=== PATIENT | male | born 1960 | race Caucasian/White ===

== ENCOUNTER 2019-06-19 11:01 | Emergency (ER) | payer OTHER, SELFPAY ==
[2019-06-19 11:12] VITALS: BP 151/113; PULSE 78; RESP 18; TEMP 36.7; O2SAT 97
--- NOTE | 2019-06-19 11:18 | ED.DIZZY ---
HPI - Dizziness General Chief Complaint: Dizziness Stated Complaint: clogged ears verdigo? Time Seen by Provider: 06/19/19 11:18 Source: patient Mode of arrival: Wheelchair Limitations: no limitations History of Present Illness HPI Narrative: The patient has a history of recurrent right ear pressure. He has had pressure in the right ear several days this time. He has had no drainage from the ears. He has taken Sudafed. He has no sinus pressure. He does not smoke. He thinks he does have a degree of allergies. He has a prior history of similar events. He does not have tinnitus. 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 With the current symptoms he has no chest pain, or palpitations. He has no confusion, dysarthria, focal weakness or numbness. He is prediabetic. He has no recent illness. Related Data Home Medications Medication Instructions Recorded Confirmed aspirin 81 mg tablet,delayed 81 mg PO DAILY 12/09/18 06/19/19 release fexofenadine 60 mg tablet 60 mg PO DAILY tab 12/09/18 06/19/19 metformin 500 mg tablet 500 mg PO BID 12/09/18 06/19/19 metoprolol tartrate 50 mg tablet 50 mg PO BID 12/09/18 06/19/19 pantoprazole 20 mg tablet,delayed 20 mg PO DAILY 12/09/18 06/19/19 release Respironics Remstar CPAP #1 ea 06/19/19 06/19/19 simvastatin 20 mg PO QPM 06/19/19 06/19/19 triamterene 37.5 1 tab PO DAILY tab 06/19/19 06/19/19 mg-hydrochlorothiazide 25 mg tablet Previous Rx's Medication Instructions Recorded meclizine 25 mg PO TID-QID PRN #30 tab 06/19/19 Allergies Allergy/AdvReac Type Severity Reaction Status Date / Time No Known Allergies Allergy Unknown Verified 06/19/19 13:03 Review of Systems Review of Systems ROS Unobtainable: All systems reviewed & are unremarkable except as noted in HPI and below Constitutional Constitutional: Denies chills, Denies fatigue, Denies fever(s), Denies lethargy and Denies weakness Eyes Eyes: Denies change in vision, Denies eye discharge and Denies loss of vision ENT Ears, Nose, Mouth, and Throat: Denies change in voice and Denies neck pain Cardiovascular Cardiovascular: Denies chest pain, Denies irregular heart rhythm, Denies lightheadedness, Denies palpitations, Denies dyspnea and Denies orthopnea Respiratory Respiratory: Denies cough and Denies dyspnea Gastrointestinal Gastrointestinal: Denies abdominal pain, Denies change in bowel habits, Denies nausea and Denies vomiting Musculoskeletal Musculoskeletal: Denies abnormal gait, Denies back pain and Denies neck pain Integumentary/Breasts Skin/Breast: Denies erythema, Denies rash and Denies wounds Neurologic Neurologic: Denies abnormal gait, Denies confusion, Denies loss of vision and Denies weakness Psychiatric Psychiatric: Denies anxiety, Denies confusion and Denies depression Endocrine Endocrine: Denies fatigue and Denies palpitations Patient History Medical History Chronic seasonal allergic rhinitis (Chronic) Hyperlipidemia (Chronic) Hypertension (Chronic) Obesity (BMI 30-39.9) (Chronic) Obstructive sleep apnea of adult (Chronic) Social History marital status: details: cassie Sanchez, lives in [place] household members: spouse lives independently: Yes caregiver/support person: No housing: house pets and animals: Yes (2 dogs) occupational status: other (retired) Smoking Status: Never smoker alcohol intake frequency: 0-2 drinks per day Substance Use Type: does not use Exam Initial Vital Signs Initial Vital Signs: Vital Signs Temperature 98.1 F 06/19/19 11:12 Pulse Rate 78 06/19/19 11:12 Respiratory Rate 18 06/19/19 11:12 Blood Pressure 151/113 H 06/19/19 11:12 Pulse Oximetry 97 06/19/19 11:12 Const General: cooperative and well developed Nutritional Appearance: well nourished Orientation: alert, awake, oriented x3 and not confused [facility] Head: normocephalic and atraumatic Ears: external ears normal, TM normal on the left and TM abnormal (The right TM is retracted, but clear.) Nose: external nose normal and No nasal discharge Face and sinus: sinuses nontender, face symmetric and No dry mucous membranes Mouth: oral mucosae normal and moist mucous membranes Throat: tonsils normal and uvula midline Eyes General: appearance normal, both eyes and all related structures Eyelids: eyelids normal Conjunctivae: conjunctivae normal Sclera: sclerae normal Pupils: PERRL EOM: EOM intact bilaterally Neck Neck: No lymphadenopathy and No JVD Chest Chest: normal inspection of the chest Resp Effort & Inspection: normal respiratory effort, able to speak in complete sentences, no respiratory distress and no use of accessory muscles Auscultation: clear to auscultation bilaterally, no rales, no rhonchi and no wheezes Cardio Rate: regular rate Rhythm: regular rhythm Heart Sounds: no click, no gallops, no murmurs and no rubs Pulses: normal peripheral pulses GI Palpation: soft Percussion: normal to percussion Back/Spine/Pelvis Back: No back tenderness Skin General: no rashes or lesions noted Neuro General: alert, oriented x3 and no focal motor deficits Speech: speech normal Extrem General: full ROM, no pedal edema and no calf tenderness Course Course Course Narrative: The patient's symptoms have resolved with the use of meclizine 50 mg p.o.. He is feeling better and will be discharged on meclizine. Orders Ordered: ED Orders 06/19/19 11:14 EKG-12 Lead Stat 06/19/19 11:20 Complete Blood Count AUTO DIFF Stat Comprehensive Metabolic Panel Stat PT [Prothrombin Time INR] Stat Partial Thromboplastin Time Stat Troponin & CK Cardiac Panel Stat Discontinued Medications Sodium Chloride (Normal Saline 0.9%) 1,000 mls @ 150 mls/hr IV CONT AMANDO Last Infusion: 06/19/19 12:55 Dose: 0 mls/hr Documented by: Admin: 06/19/19 11:38 Dose: 150 mls/hr Documented by: CHASE Meclizine HCl (Antivert) 50 mg PO NOW ONE Stop: 06/19/19 11:25 Last Admin: 06/19/19 11:37 Dose: 50 mg Documented by: CHASE Ondansetron HCl (Zofran) 4 mg IV NOW ONE Stop: 06/19/19 11:17 Last Admin: 06/19/19 11:36 Dose: 4 mg Documented by: CHASE Vital Signs Vital signs: Vital Signs - 8 hr 06/19/19 11:12 06/19/19 11:32 06/19/19 12:00 Temperature 98.1 F Pulse Rate 78 65 73 Respiratory Rate 18 19 18 Blood Pressure 151/113 H Blood Pressure [Right Arm] 146/97 H 132/91 H Pulse Oximetry 97 93 98 06/19/19 12:59 Temperature Pulse Rate 70 Respiratory Rate 14 Blood Pressure Blood Pressure [Right Arm] 145/90 H Pulse Oximetry 98 MDM - Dizziness Lab Data Result diagrams: 06/19/19 11:20 06/19/19 11:20 Labs: Lab Results 06/19/19 06/19/19 06/19/19 Range/Units 11:20 11:20 11:20 WBC 10.6 (4.5-11.0) X10^3/uL RBC 5.26 (4.5-5.9) X10^6/uL Hgb 15.8 (13.5-17.5) g/dL Hct 44.3 (41-53) % MCV 84.3 (80-100) fL MCH 30.0 (26-34) PG MCHC 35.6 (30-36) % RDW 14.7 (11.6-14.8) % Plt Count 250 (150-400) X10^3/uL Neut % (Auto) 51.2 (50-75) % Lymph % (Auto) 36.9 (25-40) % [place] % (Auto) 8.6 (3-14) % Eos % (Auto) 3.1 (2-4) % Baso % (Auto) 0.2 (0-2) % Neut # (Auto) 5400 (8822-9583) /uL Lymph # (Auto) 3900 (6291-4052) /uL [place] # (Auto) 900 (0-900) /uL Eos # (Auto) 300 (0-450) /uL Baso # (Auto) 0 (0-100) /uL PT 11.1 (10.1-12.7) SECONDS INR 1.0 (0.9-1.3) APTT 29 (26.4-36.2) SECONDS Sodium 136 L (137-145) mmol/L Potassium 3.9 (3.4-5.1) mmol/L Chloride 99 (98-107) mmol/L Carbon Dioxide 25 (22-32) mmol/L BUN 18 (9-20) mg/dL Creatinine 0.80 (0.66-1.25) mg/dL Estimated GFR > 60.0 (>60) mL/min BUN/Creatinine Ratio 22.5 H (6-22) Glucose 178 H (80-110) mg/dL Calcium 9.6 (8.4-10.2) mg/dL Total Bilirubin 0.7 (0.2-1.3) mg/dL AST 79 H (17-59) IU/L ALT 108 H (21-72) IU/L Alkaline Phosphatase 57 (38-126) U/L Total Creatine Kinase (55-170) U/L CK-MB (CK-2) CK-MB (CK-2) Rel Index Troponin I (0.01-0.034) ng/mL Total Protein 8.4 H (6.3-8.2) g/dL Albumin 4.9 (3.5-5.0) g/dL Globulin 3.5 (1.7-4.1) g/dL Albumin/Globulin Ratio 1.4 (1.0-2.8) 06/19/19 Range/Units 11:20 WBC (4.5-11.0) X10^3/uL RBC (4.5-5.9) X10^6/uL Hgb (13.5-17.5) g/dL Hct (41-53) % MCV (80-100) fL MCH (26-34) PG MCHC (30-36) % RDW (11.6-14.8) % Plt Count (150-400) X10^3/uL Neut % (Auto) (50-75) % Lymph % (Auto) (25-40) % [place] % (Auto) (3-14) % Eos % (Auto) (2-4) % Baso % (Auto) (0-2) % Neut # (Auto) (5866-4823) /uL Lymph # (Auto) (9829-8917) /uL [place] # (Auto) (0-900) /uL Eos # (Auto) (0-450) /uL Baso # (Auto) (0-100) /uL PT (10.1-12.7) SECONDS INR (0.9-1.3) APTT (26.4-36.2) SECONDS Sodium (137-145) mmol/L Potassium (3.4-5.1) mmol/L Chloride (98-107) mmol/L Carbon Dioxide (22-32) mmol/L BUN (9-20) mg/dL Creatinine (0.66-1.25) mg/dL Estimated GFR (>60) mL/min BUN/Creatinine Ratio (6-22) Glucose (80-110) mg/dL Calcium (8.4-10.2) mg/dL Total Bilirubin (0.2-1.3) mg/dL AST (17-59) IU/L ALT (21-72) IU/L Alkaline Phosphatase (38-126) U/L Total Creatine Kinase 80 (55-170) U/L CK-MB (CK-2) TNP CK-MB (CK-2) Rel Index TNP Troponin I < 0.012 (0.01-0.034) ng/mL Total Protein (6.3-8.2) g/dL Albumin (3.5-5.0) g/dL Globulin (1.7-4.1) g/dL Albumin/Globulin Ratio (1.0-2.8) Urine Dip Bedside Urine Glucose Negative Bedside Urine Bilirubin - Negative Bedside Urine Ketone - Negative Urine Specific [place] 1.020 Bedside Urine Occult Blood - Negative Bedside Urine pH 6.0 Bedside Urine Protein +/- 15 Bedside Urine Urobilinogen - Negative Bedside Urine Nitrite - Negative Bedside Urine Leukocytes - Negative Esterase ECG Data Attestation: I personally reviewed and interpreted this ECG as follows: (Normal sinus rhythm rate 72 beats per minute. First degree AV block. Possible left ventricular conduction delay. No ectopy. No acute ST T wave changes.) Discharge Plan Departure Patient Disposition: Home Clinical Impression: Acute labyrinthitis Qualifiers: Laterality: right Qualified Code(s): H83.01 - Labyrinthitis, right ear Discharge Date/Time: 06/19/19 13:03 Instructions: DI for Labyrinthitis Activity Restrictions/Additional Instructions: Continue taking Sudafed every 6 hours until the right ear pressure resolves. You should take warm steamy showers 1-2 times daily, this may help. Meclizine 1 tablet every 6 hours as needed for dizziness. Follow-up with her doctor in about 1 week for recheck. Return the ER if obviously worse. Prescriptions: New meclizine 25 mg tablet 25 mg PO TID-QID PRN (Reason: dizziness) Qty: 30 RF: 0 No Action simvastatin 20 mg tablet 20 mg PO QPM RF: 0 metformin 500 mg tablet 500 mg PO BID RF: 0 fexofenadine [Elana Allergy] 60 mg tablet 60 mg PO DAILY RF: 0 aspirin [Adult Low Dose Aspirin] 81 mg tablet,delayed release (DR/EC) 81 mg PO DAILY RF: 0 pantoprazole [Protonix] 20 mg tablet,delayed release (DR/EC) 20 mg PO DAILY RF: 0 metoprolol tartrate 50 mg tablet 50 mg PO BID RF: 0 triamterene-hydrochlorothiazid 37.5-25 mg tablet 1 tab PO DAILY RF: 0 (DME) Respironics Remstar CPAP Qty: 1 RF: 0
[2019-06-19 11:32] VITALS: BP 146/97; PULSE 65; RESP 19; O2SAT 93
[2019-06-19 11:32] LABS: Add Manual Diff / Slide Review NO; Basophils Absolute Auto 0 /uL (0-100); Basophils Percent Auto 0.2 % (0-2); Eosinophils Absolute Auto 300 /uL (0-450); Eosinophils Percent Auto 3.1 % (2-4); Hematocrit 44.3 % (41-53); Hemoglobin 15.8 g/dL (13.5-17.5); Lymphocytes Absolute Auto 3900 /uL (1100-4500); Lymphocytes Percent Auto 36.9 % (25-40); Mean Corpuscular HGB Conc 35.6 % (30-36); Mean Corpuscular Volume 84.3 fL (80-100); Monocytes Absolute Auto 900 /uL (0-900); Monocytes Percent Auto 8.6 % (3-14); Neutrophils Absolute Auto 5400 /uL (1500-7000); Neutrophils Percent Auto 51.2 % (50-75); Platelet Count 250 X10^3/uL (150-400); Red Blood Cell Count 5.26 X10^6/uL (4.5-5.9); Red Cell Distribution Width 14.7 % (11.6-14.8); White Blood Cell Count 10.6 X10^3/uL (4.5-11.0)
[2019-06-19] MEDS: ONDANSETRON 4 MG/2 ML INJ IV (11:36)
[2019-06-19] MEDS: MECLIZINE HCL 12.5 MG TABLET 50 MG PO (11:37)
[2019-06-19] MEDS: SODIUM CHLORIDE 0.9% 1,000 ML 150 ML IV (11:38)
[2019-06-19 11:41] LABS: Prothrombin Time 11.1 SECONDS (10.1-12.7)
[2019-06-19 11:43] LABS: PTT Partial Thromboplastin Tim 29 SECONDS (26.4-36.2)
[2019-06-19 11:46] LABS: Alanine Aminotransferase 108 IU/L (21-72); Albumin 4.9 g/dL (3.5-5.0); Albumin Globulin Ratio 1.4 (1.0-2.8); Alkaline Phosphatase 57 U/L (38-126); Aspartate Aminotransferase 79 IU/L (17-59); BUN Creatinine Ratio 22.5 (6-22); Bilirubin Total 0.7 mg/dL (0.2-1.3); Blood Urea Nitrogen 18 mg/dL (9-20); Calcium 9.6 mg/dL (8.4-10.2); Carbon Dioxide 25 mmol/L (22-32); Chloride 99 mmol/L (98-107); Creatine Kinase 80 U/L (55-170); Estimated Glomerular Filt Rate > 60.0 mL/min (>60); Globulin 3.5 g/dL (1.7-4.1); Glucose 178 mg/dL (80-110); HEMOLYSIS 15 (0-50); Potassium 3.9 mmol/L (3.4-5.1); Sodium 136 mmol/L (137-145); Total Protein 8.4 g/dL (6.3-8.2)
[2019-06-19 11:57] LABS: Troponin I < 0.012 ng/mL (0.01-0.034)
[2019-06-19 12:00] VITALS: BP 132/91; PULSE 73; RESP 18; O2SAT 98
[2019-06-19 12:59] VITALS: BP 145/90; PULSE 70; RESP 14; O2SAT 98
== END 2019-06-19 13:03 | disposition home or self-care (01) ==
PROVIDERS: Emergency Provider Emergency Medicine
DX: H83.01 Labyrinthitis, right ear (principal); R07.9 Chest pain, unspecified
CPT/HCPCS: 36415; 80053; 81003; 82550; 84484; 85025; 85610; 85730; 93005; 96361; 96374; 99283; 99284; J2405

== ENCOUNTER → 2019-07-31 18:54 | Outpatient (CLI) | payer OTHER, SELFPAY ==
--- NOTE | 2019-07-31 | DI.MRI.S_ITS ---
PROCEDURE: MR HEAD/BRAIN WO CON INDICATIONS: unspecified sensorineural hearing loss TECHNIQUE: Non-contrast axial T1 spin echo, axial T2 fast spin echo, sagittal and axial FLAIR, coronal T2 fast spin echo, axial gradient echo, axial diffusion and ADC through the brain. COMPARISON: None. FINDINGS: Image quality: Excellent. CSF spaces: Ventricles appear symmetric in size and shape. Basal cisterns are patent. No extra-axial fluid collections. Brain: No intracranial bleeds or mass effects. There is mild cerebral volume loss for age. There are minimal periventricular and deep white matter chronic small vessel ischemic changes. Brainstem appears normal. Diffusion-weighted images show no acute ischemic insults. No chronic ischemic insults. Normal intravascular flow voids are present. Skull and face: Calvarial bone marrow is normal in signal. Orbits are normal. Sinuses: Sinuses and mastoids are clear. IMPRESSION: 1. No acute intracranial disease process. 2. No abnormal intracranial mass or mass effect. There is clinical concern for vestibular schwannoma as underlying cause of patient's sensorineural hearing loss, then dedicated MRI internal auditory canals with and without contrast should be considered for further evaluation. 3. Mild, diffuse cerebral volume loss. 4. Minimal periventricular and subcortical white matter chronic microvascular ischemic change. Dictated by: Maria T Bourne MD, PhD on 08/01/2019 at 8:01 Approved by: Maria T Bourne MD, PhD on 08/01/2019 at 8:07
== END ==
PROVIDERS: Visit Provider Otolaryngology Facial Plastic Surgery
DX: H90.5 Unspecified sensorineural hearing loss (principal)
CPT/HCPCS: 70551

== ENCOUNTER 2020-01-25 19:34 | Observation (INO) | payer OTHER, SELFPAY ==
[2020-01-25] VITALS (10 sets, daily range): BP systolic 134–184; BP diastolic 76–93; PULSE 80–91; RESP 16–29; TEMP 35.7; O2SAT 88–97; BMI 35.2
--- NOTE | 2020-01-25 19:48 | DI.RAD.S_ITS ---
PROCEDURE: XR CHEST 1V INDICATIONS: SOB, diaphoresis, dizzy, N/V TECHNIQUE: One view of the chest was acquired. COMPARISON: None. FINDINGS: Surgical changes and devices: None. Lungs and pleura: Lungs are clear. No pleural effusions or pneumothorax. Mediastinum: Mediastinal contours appear normal. Heart size is normal. Bones and chest wall: No suspicious bony lesions. Overlying soft tissues appear unremarkable. IMPRESSION: No acute cardiopulmonary abnormality. Dictated by: Gualberto Barr M.D. on 01/25/2020 at 21:15 Approved by: Gualberto Barr M.D. on 01/25/2020 at 21:15
[2020-01-25] MEDS: SODIUM CHLORIDE 0.9% 1,000 ML 150 ML IV (19:58)
[2020-01-25] MEDS: ONDANSETRON 4 MG/2 ML INJ IV (20:00)
[2020-01-25] MEDS: ASPIRIN 81 MG CHEW TAB 324 MG PO (20:00)
[2020-01-25 20:02] LABS: Add Manual Diff / Slide Review NO; Basophils Absolute Auto 100 /uL (0-100); Basophils Percent Auto 1.1 % (0-2); Eosinophils Absolute Auto 400 /uL (0-450); Eosinophils Percent Auto 2.9 % (2-4); Hematocrit 45.5 % (41-53); Hemoglobin 15.9 g/dL (13.5-17.5); Lymphocytes Absolute Auto 5600 /uL (1100-4500); Lymphocytes Percent Auto 42.2 % (25-40); Mean Corpuscular HGB Conc 34.9 % (30-36); Mean Corpuscular Hemoglobin 29.2 PG (26-34); Mean Corpuscular Volume 83.6 fL (80-100); Monocytes Absolute Auto 1100 /uL (0-900); Neutrophils Absolute Auto 6100 /uL (1500-7000); Neutrophils Percent Auto 45.8 % (50-75); Platelet Count 246 X10^3/uL (150-400); Red Blood Cell Count 5.44 X10^6/uL (4.5-5.9); Red Cell Distribution Width 14.6 % (11.6-14.8); White Blood Cell Count 13.2 X10^3/uL (4.5-11.0)
[2020-01-25 20:09] LABS: Prothrombin Time 11.4 SECONDS (10.1-12.7)
[2020-01-25 20:12] LABS: PTT Partial Thromboplastin Tim 27 SECONDS (26.4-36.2)
[2020-01-25 20:13] LABS: D Dimer < 200 ng/mL (<230)
[2020-01-25 20:14] LABS: Alanine Aminotransferase 82 IU/L (<50); Albumin 4.8 g/dL (3.5-5.0); Albumin Globulin Ratio 1.3 (1.0-2.8); Alkaline Phosphatase 60 U/L (38-126); Aspartate Aminotransferase 65 IU/L (17-59); BUN Creatinine Ratio 17.2 (6-22); Bilirubin Total 0.6 mg/dL (0.2-1.3); Blood Urea Nitrogen 16 mg/dL (9-20); Calcium 9.6 mg/dL (8.4-10.2); Carbon Dioxide 25 mmol/L (22-32); Chloride 101 mmol/L (98-107); Creatine Kinase 84 U/L (55-170); Estimated Glomerular Filt Rate > 60.0 mL/min (>60); Globulin 3.6 g/dL (1.7-4.1); Glucose 151 mg/dL (80-110); HEMOLYSIS 16 (0-50); Lipase 140 U/L (23-300); Potassium 3.1 mmol/L (3.4-5.1); Sodium 139 mmol/L (137-145); Total Protein 8.4 g/dL (6.3-8.2)
--- NOTE | 2020-01-25 20:22 | DI.CT.S_ITS ---
PROCEDURE: CT HEAD/BRAIN WO CON INDICATIONS: dizziness, vomiting TECHNIQUE: Noncontrast 4.5 mm thick angled axial sections acquired from the foramen magnum to the vertex, with coronal and sagittal reformats. For radiation dose reduction, the following was used: automated exposure control, adjustment of mA and/or kV according to patient size. COMPARISON: [facility], , MR HEAD/BRAIN WO CON, 07/31/2019, 19:18. FINDINGS: Image quality: Excellent. CSF spaces: Basal cisterns are patent. No extra-axial fluid collections. Ventricles are normal in size and shape. Brain: No midline shift. No intracranial masses or hemorrhage. Gupta-white matter interface is normal. Skull and face: Calvarium and visualized facial bones are intact, without suspicious lesions. Sinuses: Visualized sinuses and mastoids are clear. IMPRESSION: No acute intracranial abnormality demonstrated. Dictated by: Gualberto Barr M.D. on 01/25/2020 at 20:53 Approved by: Gualberto Barr M.D. on 01/25/2020 at 20:55
[2020-01-25 20:26] LABS: NT-proBNP (BNP-Adult 18+) 21 pg/mL (<125); Troponin I < 0.012 ng/mL (0.01-0.034)
--- NOTE | 2020-01-25 20:35 | PC.NURSE ---
patient O2 dipping down to 88% on RA. patient placed on 2L oxygen via nasal canula. patient has a history of sleep apnea. provider notified and aware.
[2020-01-25 20:42] LABS: Procalcitonin 0.07 ng/mL (<0.5)
--- NOTE | 2020-01-25 21:09 | ED_ITS ---
HPI - Dizziness General Chief Complaint: Dizziness Stated Complaint: nausea/vomiting, dizziness, sweating Time Seen by Provider: 01/25/20 19:35 Source: patient Mode of arrival: Family Vehicle Limitations: no limitations History of Present Illness HPI Narrative: 60-year-old male former smoker with history of hypertension, hyperlipidemia and obesity presents with a chief complaint of sudden onset dizziness, lightheadedness, diaphoresis, shortness of breath along with nausea and vomiting a few hours prior to arrival. He denies any chest pain or pressure. He denies any provocation or palliation of symptoms. He denies any recent head injury or headache. He does state that he had an episode years ago of vertigo that felt like this but states today the dizziness he has is not worsened by turning his head MD complaint: dizziness and lightheadedness Onset (ago): hour(s) Timing: gradual onset Description: lightheadedness History of similar episodes: Yes History of trauma: No Severity: moderate Relieving factors: nothing Exacerbating factors: nothing Associated symptoms: diaphoresis, shortness of breath, nausea and vomiting Related Data Home Medications Medication Instructions Recorded Confirmed metformin 500 mg tablet 500 mg PO BID 12/09/18 01/25/20 metoprolol tartrate 50 mg tablet 50 mg PO BID 12/09/18 01/25/20 pantoprazole 20 mg tablet,delayed 20 mg PO DAILY 12/09/18 01/25/20 release Respironics Remstar CPAP #1 ea 06/19/19 06/19/19 simvastatin 20 mg PO QPM 06/19/19 01/25/20 triamterene 37.5 1 tab PO DAILY tab 06/19/19 01/25/20 mg-hydrochlorothiazide 25 mg tablet Allergies Allergy/AdvReac Type Severity Reaction Status Date / Time No Known Allergies Allergy Unknown Verified 06/19/19 13:03 Review of Systems Constitutional Constitutional: Denies chills, Denies fatigue, Denies fever(s), Denies frequent falls, Denies lethargy and Denies weakness Eyes Eyes: Denies change in vision, Denies eye discharge, Denies irritation and Denies loss of vision ENT Ears, Nose, Mouth, and Throat: Denies change in voice, Denies dizziness, Denies neck pain, Denies sore throat and Denies throat swelling Cardiovascular Cardiovascular: Denies chest pain, Denies irregular heart rhythm, Reports lightheadedness, Denies palpitations, Denies dyspnea, Denies dyspnea on exertion and Denies orthopnea Comments: Diaphoresis Respiratory Respiratory: Denies cough, Denies dyspnea, Denies dyspnea on exertion and Denies wheezing Gastrointestinal Gastrointestinal: Denies abdominal pain, Denies change in bowel habits, Denies diarrhea, Reports nausea and Reports vomiting Musculoskeletal Musculoskeletal: Denies neck pain and Denies numbness Integumentary/Breasts Skin/Breast: Denies pruritus, Denies erythema, Denies rash and Denies wounds Neurologic Neurologic: Denies behavioral changes, Denies confusion, Denies dizziness, Denies frequent falls, Denies loss of vision, Denies numbness and Denies weakness Psychiatric Psychiatric: Denies anxiety, Denies behavioral changes, Denies confusion, Denies depression, Denies homicidal ideation and Denies suicidal ideation Endocrine Endocrine: Denies fatigue, Denies flushing and Denies palpitations Hematologic/Lymphatic Hematologic/Lymphatic: Denies easy bruising Allergic/Immunologic Allergic/Immunologic: Denies urticaria, Denies throat swelling and Denies wheezing Patient History Medical History (Updated 01/26/20 @ 04:19 by Paras Garcia DO) Chronic seasonal allergic rhinitis (Chronic) Clicking tinnitus of right ear (Acute) Hyperlipidemia (Chronic) Hypertension (Chronic) Liver abscess (Acute) Obesity (BMI 30-39.9) (Chronic) Obstructive sleep apnea of adult (Chronic) Type 2 diabetes mellitus (Acute) Vertigo (Acute) Surgical History (Updated 01/26/20 @ 01:39 by DERECK Angel) History of cholecystectomy (Acute) History of surgery on arm (Acute) Family History (Updated 01/26/20 @ 01:40 by DERECK Angel) Father Medical history unknown Mother Hypertension Cardiac disease Smoker Social History marital status: details: cassie Sanchez, lives in [place] household members: spouse lives independently: Yes caregiver/support person: No housing: house pets and animals: Yes (2 dogs) occupational status: other (retired) Smoking Status: Former smoker Smoking Status: Former smoker alcohol intake frequency: 0-2 drinks per day Substance Use Type: does not use Exam Narrative Exam Narrative: GENERAL: [60] year old patient appears stated age. Well- nourished, well-developed patient, in moderate distress. Significantly diaphoretic HEAD: Atraumatic. Normocephalic. EYES: Pupils equal round and reactive. Extraocular motions intact. No scleral icterus. No injection or drainage. No nystagmus noted. No provocation of dizziness with change of head position ENT: Nose without bleeding, purulent drainage. Throat without erythema, tonsilla r hypertrophy or exudate. Airway patent. NECK: Trachea midline. Non tender CARDIOVASCULAR: Regular rate and rhythm without murmurs, gallops, or rubs. RESPIRATORY: Clear to auscultation. Breath sounds equal bilaterally. No wheezes, rales, or rhonchi. GASTROINTESTINAL: Abdomen soft, non-tender, nondistended. EXTREMITIES: No edema or joint tenderness. BACK: Nontender without deformity or crepitance. No flank tenderness. NEURO: AOx3. SKIN: No rash or erythema of visible areas Initial Vital Signs Initial Vital Signs: Vital Signs Temperature 96.3 F L 01/25/20 19:40 Pulse Rate 89 01/25/20 19:40 Respiratory Rate 18 01/25/20 19:40 Blood Pressure 184/93 H 01/25/20 19:40 Pulse Oximetry 96 01/25/20 19:40 Course Orders Ordered: ED Orders 01/25/20 19:48 XR chest 1V Stat EKG-12 Lead Stat 01/25/20 19:53 Complete Blood Count AUTO DIFF Stat Comprehensive Metabolic Panel Stat D Dimer Stat Lipase Stat NT-proBNP (BNP-Adult 18+) Stat Partial Thromboplastin Time Stat Procalcitonin Stat Prothrombin Time INR Stat Troponin & CK Cardiac Panel Stat 01/25/20 20:22 CT head/brain wo con Stat 01/25/20 22:12 Troponin I Stat Acetaminophen (Tylenol) 650 mg PO Q6HR PRN PRN Reason: Fever/Mild Pain (1-3) Al Hydrox/Mg Hydrox/Simethicone (Maalox Plus) 30 ml PO Q6HR PRN PRN Reason: Dyspepsia Bisacodyl (Dulcolax) 10 mg [place] DAILY PRN PRN Reason: Constipation Calcium Carbonate (Tums) 1,000 mg PO Q4HR PRN PRN Reason: Dyspepsia Dextrose (D50w) 25 gm IV PRN PRN; Protocol PRN Reason: Hypoglycemia Enoxaparin Sodium (Lovenox) 40 mg SUBCUT DAILY AMANDO Potassium Chloride 60 meq/ (Sodium Chloride) 530 mls @ 88.333 mls/hr IV NOW ONE Stop: 01/26/20 06:38 Last Admin: 01/26/20 01:06 Dose: 88.333 mls/hr Documented by: MICHAEL Cosigned by: KEVIN Insulin Aspart (Novolog Flexpen) 0 unit SUBCUT ACHS AMANDO; Protocol Meclizine HCl (Antivert) 25 mg PO Q6HR PRN PRN Reason: Vertigo Metoprolol Tartrate (Lopressor) 50 mg PO BID [facility] Naloxone HCl (Narcan) 0.2 mg IV Q2MIN PRN PRN Reason: Opiate Reversal Ondansetron HCl (Zofran) 4 mg IV Q6HR PRN PRN Reason: Nausea And Vomiting Pantoprazole Sodium (Protonix) 20 mg PO 0600 [facility] Psyllium Hydrophilic Mucilloid (Metamucil Fiber Packet) 1 packet PO DAILY [facility] Sennosides (Senna) 17.2 mg PO BEDTIME PRN PRN Reason: Constipation Simvastatin (Zocor) 20 mg PO QPM [facility] Triamterene/HCTZ (Maxide 37.5/25) 1 tab PO DAILY [facility] Discontinued Medications Aspirin (Aspirin Chew) 324 mg PO NOW ONE Stop: 01/25/20 19:49 Last Admin: 01/25/20 20:00 Dose: 324 mg Documented by: MARY Sodium Chloride (Normal Saline 0.9%) 1,000 mls @ 150 mls/hr IV CONT AMANDO Last Infusion: 01/26/20 00:39 Dose: 150 mls/hr Documented by: Infusion: 01/26/20 00:11 Dose: 0 mls/hr Documented by: Infusion: 01/26/20 00:07 Dose: 150 mls/hr Documented by: Infusion: 01/25/20 21:02 Dose: 150 mls/hr Documented by: Infusion: 01/25/20 20:31 Dose: 0 mls/hr Documented by: Admin: 01/25/20 19:58 Dose: 150 mls/hr Documented by: MARY Sodium Chloride (Normal Saline 0.9%) 1,000 mls @ 75 mls/hr IV CONT AMANDO Last Infusion: 01/26/20 02:53 Dose: 75 mls/hr Documented by: Admin: 01/26/20 00:51 Dose: 75 mls/hr Documented by: MICHAEL Ondansetron HCl (Zofran) 4 mg IV NOW ONE Stop: 01/25/20 19:49 Last Admin: 01/25/20 20:00 Dose: 4 mg Documented by: MARY Consultations Consultation #1: discussed with cardio at [facility]. No need to transfer, needs admission and rule out Consultation #2: hospitalist happy to accept Vital Signs Vital signs: Vital Signs - 8 hr 01/25/20 20:29 01/25/20 20:37 01/25/20 20:59 Pulse Rate 86 Respiratory Rate 17 Blood Pressure [Left Arm] 146/85 H Pulse Oximetry 88 L 96 95 01/25/20 21:30 01/25/20 22:00 01/25/20 22:30 Pulse Rate 87 90 89 Respiratory Rate 23 29 H 22 Blood Pressure [Left Arm] 134/76 141/87 H 141/85 H Pulse Oximetry 95 97 96 01/25/20 23:00 Pulse Rate 91 H Respiratory Rate 20 Blood Pressure [Left Arm] 150/84 H Pulse Oximetry 96 MDM - Dizziness Lab Data Result diagrams: 01/25/20 19:53 01/25/20 19:53 Labs: Lab Results 01/25/20 01/25/20 01/25/20 Range/Units 19:53 19:53 19:53 WBC 13.2 H (4.5-11.0) X10^3/uL RBC 5.44 (4.5-5.9) X10^6/uL Hgb 15.9 (13.5-17.5) g/dL Hct 45.5 (41-53) % MCV 83.6 (80-100) fL MCH 29.2 (26-34) PG MCHC 34.9 (30-36) % RDW 14.6 (11.6-14.8) % Plt Count 246 (150-400) X10^3/uL Neut % (Auto) 45.8 L (50-75) % Lymph % (Auto) 42.2 H (25-40) % [place] % (Auto) 8.0 (3-14) % Eos % (Auto) 2.9 (2-4) % Baso % (Auto) 1.1 (0-2) % Neut # (Auto) 6100 (9565-6785) /uL Lymph # (Auto) 5600 H (4133-8474) /uL [place] # (Auto) 1100 H (0-900) /uL Eos # (Auto) 400 (0-450) /uL Baso # (Auto) 100 (0-100) /uL PT 11.4 (10.1-12.7) SECONDS INR 1.0 (0.9-1.3) APTT 27 D (26.4-36.2) SECONDS D-Dimer < 200 (<230) ng/mL Sodium 139 (137-145) mmol/L Potassium 3.1 L (3.4-5.1) mmol/L Chloride 101 (98-107) mmol/L Carbon Dioxide 25 (22-32) mmol/L BUN 16 (9-20) mg/dL Creatinine 0.93 (0.66-1.25) mg/dL Estimated GFR > 60.0 (>60) mL/min BUN/Creatinine Ratio 17.2 (6-22) Glucose 151 H (80-110) mg/dL Calcium 9.6 (8.4-10.2) mg/dL Total Bilirubin 0.6 (0.2-1.3) mg/dL AST 65 H (17-59) IU/L ALT 82 H (<50) IU/L Alkaline Phosphatase 60 (38-126) U/L Total Creatine Kinase 84 (55-170) U/L CK-MB (CK-2) TNP CK-MB (CK-2) Rel Index TNP Troponin I < 0.012 (0.01-0.034) ng/mL NT-Pro-B Natriuret Pep 21 (<125) pg/mL Total Protein 8.4 H (6.3-8.2) g/dL Albumin 4.8 (3.5-5.0) g/dL Globulin 3.6 (1.7-4.1) g/dL Albumin/Globulin Ratio 1.3 (1.0-2.8) Lipase 140 (23-300) U/L Procalcitonin (<0.5) ng/mL 01/25/20 01/25/20 Range/Units 19:53 22:12 WBC (4.5-11.0) X10^3/uL RBC (4.5-5.9) X10^6/uL Hgb (13.5-17.5) g/dL Hct (41-53) % MCV (80-100) fL MCH (26-34) PG MCHC (30-36) % RDW (11.6-14.8) % Plt Count (150-400) X10^3/uL Neut % (Auto) (50-75) % Lymph % (Auto) (25-40) % [place] % (Auto) (3-14) % Eos % (Auto) (2-4) % Baso % (Auto) (0-2) % Neut # (Auto) (7034-7915) /uL Lymph # (Auto) (6383-6307) /uL [place] # (Auto) (0-900) /uL Eos # (Auto) (0-450) /uL Baso # (Auto) (0-100) /uL PT (10.1-12.7) SECONDS INR (0.9-1.3) APTT (26.4-36.2) SECONDS D-Dimer (<230) ng/mL Sodium (137-145) mmol/L Potassium (3.4-5.1) mmol/L Chloride (98-107) mmol/L Carbon Dioxide (22-32) mmol/L BUN (9-20) mg/dL Creatinine (0.66-1.25) mg/dL Estimated GFR (>60) mL/min BUN/Creatinine Ratio (6-22) Glucose (80-110) mg/dL Calcium (8.4-10.2) mg/dL Total Bilirubin (0.2-1.3) mg/dL AST (17-59) IU/L ALT (<50) IU/L Alkaline Phosphatase (38-126) U/L Total Creatine Kinase (55-170) U/L CK-MB (CK-2) CK-MB (CK-2) Rel Index Troponin I < 0.012 (0.01-0.034) ng/mL NT-Pro-B Natriuret Pep (<125) pg/mL Total Protein (6.3-8.2) g/dL Albumin (3.5-5.0) g/dL Globulin (1.7-4.1) g/dL Albumin/Globulin Ratio (1.0-2.8) Lipase (23-300) U/L Procalcitonin 0.07 (<0.5) ng/mL Imaging Data Chest x-ray: Radiologist's Impression: Gus Dawn M [address] [address] XRay Report Signed Patient: Tobi Dawn#: [id number] : 8Acct:[id number] Age/Sex: 60 / MDate of Service: 01/25/20 Loc: ED Accession Number: [id number] Procedure: XR chest 1V Ordering Provider: Paras Garcia D.O. PROCEDURE: XR CHEST 1V INDICATIONS: SOB, diaphoresis, dizzy, N/V TECHNIQUE: One view of the chest was acquired. COMPARISON: None. FINDINGS: Surgical changes and devices: None. Lungs and pleura: Lungs are clear. No pleural effusions or pneumothorax. Mediastinum: Mediastinal contours appear normal. Heart size is normal. Bones and chest wall: No suspicious bony lesions. Overlying soft tissues appear unremarkable. IMPRESSION: No acute cardiopulmonary abnormality. Dictated by: Gualberto Barr M.D. on 01/25/2020 at 21:15 Approved by: Gualberto Barr M.D. on 01/25/2020 at 21:15 CT scan - head: Radiologist's Impression: Gus Dawn M [address] [address] [address] Scan Report Signed Patient: Tobi Dawn#: [id number] : 8Acct:[id number] Age/Sex: 60 / MDate of Service: 01/25/20 Loc: ED Accession Number: [id number] Procedure: CT head/brain wo con Ordering Provider: Paras Garcia D.O. PROCEDURE: CT HEAD/BRAIN WO CON INDICATIONS: dizziness, vomiting TECHNIQUE: Noncontrast 4.5 mm thick angled axial sections acquired from the foramen magnum to the vertex, with coronal and sagittal reformats. For radiation dose reduction, the following was used: automated exposure control, adjustment of mA and/or kV according to patient size. COMPARISON: [facility], HEAD/BRAIN WO CON, 07/31/2019, 19:18. FINDINGS: Image quality: Excellent. CSF spaces: Basal cisterns are patent. No extra-axial fluid collections. Ventricles are normal in size and shape. Brain: No midline shift. No intracranial masses or hemorrhage. Gupta-white matter interface is normal. Skull and face: Calvarium and visualized facial bones are intact, without suspicious lesions. Sinuses: Visualized sinuses and mastoids are clear. IMPRESSION: No acute intracranial abnormality demonstrated. Dictated by: Gualberto Barr M.D. on 01/25/2020 at 20:53 Approved by: Gualberto Barr M.D. on 01/25/2020 at 20:55 ECG Data Interpretation: EKG1: NSR 89BPM. No ectopy. No ST segmental elevation or depression. No T wave inversions. EKG2/3: no change MDM Narrative Medical decision making narrative: 60M with multiple risk factors and dizziness, significant diaphoresis, nausea. Non ischemic EKG and normal troponin x2. Patient does have history of vertigo, but today's dizziness was not provocable, no nystagmus. CT Head unremarkable, no focal findings. Concern for coronary etilogy. Patient needs trending of enzymes and likely stress test / echo Discharge Plan Departure Patient Disposition: Admitted as Observation Clinical Impression: Dizziness of unknown etiology, Chest pain, rule out acute myocardial infarction Discharge Date/Time: 01/26/20 00:14 Admit Date/Time: 01/25/20 23:21 Admit Provider: Dale Mars
[2020-01-25 22:45] LABS: Troponin I < 0.012 ng/mL (0.01-0.034)
[2020-01-26] VITALS (8 sets, daily range): BP systolic 132–155; BP diastolic 83–94; PULSE 80–105; RESP 16–21; TEMP 36.3–37; O2SAT 95–98; BMI 35.2
[2020-01-26] MEDS: SODIUM CHLORIDE 0.9% 1,000 ML 75 ML IV (00:51)
[2020-01-26] MEDS: POTASSIUM CHLORIDE 60 MEQ in SODIUM CHLORIDE 0.9% 500 ML 88.333 ML IV (01:06)
--- NOTE | 2020-01-26 01:26 | P.HP_ITS ---
History of Present Illness History of Present Illness Date Patient Seen: 01/26/20 Time Patient Seen: 01:07 Chief complaint: nausea/vomiting, dizziness, sweating Narrative: Mr. Gus Vyas is a 60-year-old male with history significant for hypertension, hyperlipidemia, diabetes type 2 on oral control, obstructive sleep apnea and vertigo who presents to the ER with a sudden onset of dizziness, lightheadedness with profuse diaphoresis with associated shortness of breath and nausea vomiting several hours prior to. Patient has had previous episodes that who presented similar but not to the intensity experienced today. He describes today's episode as far above what he has previously experienced prompting him to present to the ER for evaluation. The patient denies complaints of chest pain or palpitations and has no headache or recent trauma. States he believes his symptoms began with head turning but upon examination is non reproducible. Patient complains of right ear fullness and tinnitus and has a history of seasonal allergies. Patient's last episode of similar symptoms was in May of 2019 at which time he was diagnosed with labyrinthitis. He subsequently had an MRI completed on 07/31/2019 which showed no acute changes condom moderate volume loss, minimal periventricular white matter microvascular ischemic changes. The patient did denies recent illness or known COVID-19 exposures. He denies fevers or chills has nasal congestion but no sore throat. He denies headache or pain but endorses objects would appear to shake in his vision. He denies chest pain or palpitations. He has no shortness of breath cough or wheezing. He had nausea with vomiting earlier today with food content emesis with no blood. He further describes having episodic diarrhea for which he has been using a Imodium last used today. He describes stools as varying between loose, watery or formed. He denies difficulty in urinating. The patient is independent in all activities uses no assistive devices. Patient is afebrile upon arrival at 96.3, heart rate is 89, blood pressure 184/93, respiratory rate is 18, O2 saturation is 96% on room air. His oxygen saturation decreased while in the ER to 88% worries but on nasal cannula 2 liters/minutes with return of saturation back 96%. A chest x-ray obtained which finds no acute cardiopulmonary processes. A CT of the head finds no intracranial pathology. Twelve lead EKG finds normal sinus rhythm with a ventricular rate of 81 with a first-degree AV block with a WV interval of 217 micro seconds. He has no ectopy ST or T-wave changes. He has a mildly elevated white count at 13.2, hemoglobin 15.9, hematocrit of 45.5 and platelets of 246. Coagulation studies find PT of 11.4, INR of 1.0 and a PTT of 27. Has a D-dimer less than 200. On electrolytes he has a sodium 139 and potassium of 3.1. His BUN is 16 with a creatinine 0.93. His nonfasting glucose is 151. On liver functions as total bilirubin is 0.6, AST is 65, ALT of 82 and alkaline phosphatase 60 with an albumin of 8.4. Total CK is 84 and troponin is less than 0.012 x 2. Procalcitonin is 0.07. The patient is admitted to the medicine team for further evaluation and workup for severe vertigo with nausea vomiting. Patient History Medical History (Updated 01/26/20 @ 01:39 by DERECK Angel) Chronic seasonal allergic rhinitis (Chronic) Clicking tinnitus of right ear (Acute) Hyperlipidemia (Chronic) Hypertension (Chronic) Liver abscess (Acute) Obesity (BMI 30-39.9) (Chronic) Obstructive sleep apnea of adult (Chronic) Type 2 diabetes mellitus (Acute) Vertigo (Acute) Surgical History (Updated 01/26/20 @ 01:39 by DERECK Angel) History of cholecystectomy (Acute) History of surgery on arm (Acute) Family & Social History Family History (Updated 01/26/20 @ 01:40 by DERECK Angel) Father Medical history unknown Mother Hypertension Cardiac disease Smoker Social History: household members spouse Prior Living Arrangements House lives independently Yes caregiver/support person No Safety & Behavioral: Feels Safe in Current Yes Environment Been Physically Hurt or No Threatened By a Person Suicidal Ideation Description None Suicide Plan Description No Plan Tobacco & Substance use: Smoking Status Former smoker alcohol intake frequency holiday/special occasion Substance Use Type does not use Comment: The patient is and lives in a single family home with his Taisha. He does not know his biological father and has no knowledge of his health history. His mother has history of hypertension heart disease in has been a smoker. He has 6 half-siblings all described as healthy. He has no children. 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 Smoking: Patient quit smoking 12 years ago before which she smoked 2 packs per day for 30 years for 60 pack year history. Alcohol: Patient sources rare consumption of alcohol. Substance use: The patient denies recreational pharmaceuticals herbal or cannabis products. Advanced directives: The patient does have a formal advanced directive and a direct discussion states his desire to be FULL CODE. He designates white marks to be his surrogate decision maker. Meds Home Medications and Allergies Home Medications Medication Instructions Recorded Confirmed Type metformin 500 mg tablet 500 mg PO BID 12/09/18 01/25/20 History metoprolol tartrate 50 mg tablet 50 mg PO BID 12/09/18 01/25/20 History pantoprazole 20 mg tablet,delayed 20 mg PO DAILY 12/09/18 01/25/20 History release Respironics Remstar CPAP #1 ea 06/19/19 06/19/19 History simvastatin 20 mg PO QPM 06/19/19 01/25/20 History triamterene 37.5 1 tab PO DAILY tab 06/19/19 01/25/20 History mg-hydrochlorothiazide 25 mg tablet Allergies Allergy/AdvReac Type Severity Reaction Status Date / Time No Known Allergies Allergy Unknown Verified 06/19/19 13:03 Review of Systems Review of Systems ROS: Yes All systems reviewed with the patient and are negative except as otherwise documented Exam Vital Signs (past 8 hours): - 01/25/20 19:40 01/25/20 20:00 01/25/20 20:29 Temperature 96.3 F L Pulse Rate 89 80 Respiratory Rate 18 16 Blood Pressure 184/93 H Blood Pressure [Left Arm] 155/86 H Pulse Oximetry 96 91 88 L 01/25/20 20:37 01/25/20 20:59 01/25/20 21:30 Temperature Pulse Rate 86 87 Respiratory Rate 17 23 Blood Pressure Blood Pressure [Left Arm] 146/85 H 134/76 Pulse Oximetry 96 95 95 01/25/20 22:00 01/25/20 22:30 01/25/20 23:00 Temperature Pulse Rate 90 89 91 H Respiratory Rate 29 H 22 20 Blood Pressure Blood Pressure [Left Arm] 141/87 H 141/85 H 150/84 H Pulse Oximetry 97 96 96 01/25/20 23:30 01/26/20 00:00 01/26/20 00:34 Temperature 97.3 F L Pulse Rate 91 H 92 H 105 H Respiratory Rate 21 21 18 Blood Pressure 142/90 H Blood Pressure [Left Arm] 143/86 H 134/83 Pulse Oximetry 94 95 95 Oxygen Delivery Method Nasal Cannula Oxygen Flow Rate 0 Narrative Exam Narrative: GENERAL APPEARANCE: Pleasant briskly interactive, well developed, obese gentleman, in no acute distress. HEENT: Normocephalic, PERRLA, conjunctiva clear, EOMs intact, left lateral nystagmus no sinus tenderness to percussion, no ear or mastoid tenderness, vertigo non reproducible with head movement, no rhinorrhea, mucous membranes are moist and pink without lesions or exudate. NECK/THYROID: neck supple, no JVD, no carotid bruit, no thyromegaly, trachea midline. LYMPH NODES: no cervical or supraclavicular lymphadenopathy. SKIN: [place], warm and dry, no visible lesions, rashes, ulcerations or petechiae. HEART: regular rate and rhythm, S1-S2, no murmur, no rubs or gallops, brisk capillary refill, no edema LUNGS: clear to auscultation bilaterally, no coarseness crackles or wheezing, no cough present CHEST: Symmetrical movement, no accessory muscle use, good tidal volume. ABDOMEN: Soft, no distention, no abdominal tenderness, no guarding or peritoneal signs, no organomegaly, no flank or suprapubic tenderness, active bowel tones. BACK: Normal curvature, nontender to palpation, no CVA tenderness on percussion EXTREMITIES: Large well-healed scar left ulnar forearm, moves all extremities, strength is 5/5 and symmetrical, no deformities or joint effusions. NEUROLOGIC: AAO x4, left lateral nystagmus, cranial nerves II-XII grossly intact, sensation intact to light touch, tinnitus right ear PSYCH: Good judgment, linear thought process, cooperative, appropriate with stable behavior Objective Labs Result Diagrams: 01/25/20 19:53 01/25/20 19:53 Labs: Laboratory Results - last 24 hr 01/25/20 01/25/20 01/25/20 19:53 19:53 19:53 WBC 13.2 H RBC 5.44 Hgb 15.9 Hct 45.5 MCV 83.6 MCH 29.2 MCHC 34.9 RDW 14.6 Plt Count 246 Neut % (Auto) 45.8 L Lymph % (Auto) 42.2 H Pratt % (Auto) 8.0 Eos % (Auto) 2.9 Baso % (Auto) 1.1 Neut # (Auto) 6100 Lymph # (Auto) 5600 H Pratt # (Auto) 1100 H Eos # (Auto) 400 Baso # (Auto) 100 PT 11.4 INR 1.0 APTT 27 D D-Dimer < 200 Sodium 139 Potassium 3.1 L Chloride 101 Carbon Dioxide 25 BUN 16 Creatinine 0.93 Estimated GFR > 60.0 BUN/Creatinine Ratio 17.2 Glucose 151 H Calcium 9.6 Total Bilirubin 0.6 AST 65 H ALT 82 H Alkaline Phosphatase 60 Total Creatine Kinase 84 CK-MB (CK-2) TNP CK-MB (CK-2) Rel Index TNP Troponin I < 0.012 NT-Pro-B Natriuret Pep 21 Total Protein 8.4 H Albumin 4.8 Globulin 3.6 Albumin/Globulin Ratio 1.3 Lipase 140 Procalcitonin 01/25/20 01/25/20 19:53 22:12 WBC RBC Hgb Hct MCV MCH MCHC RDW Plt Count Neut % (Auto) Lymph % (Auto) Pratt % (Auto) Eos % (Auto) Baso % (Auto) Neut # (Auto) Lymph # (Auto) Pratt # (Auto) Eos # (Auto) Baso # (Auto) PT INR APTT D-Dimer Sodium Potassium Chloride Carbon Dioxide BUN Creatinine Estimated GFR BUN/Creatinine Ratio Glucose Calcium Total Bilirubin AST ALT Alkaline Phosphatase Total Creatine Kinase CK-MB (CK-2) CK-MB (CK-2) Rel Index Troponin I < 0.012 NT-Pro-B Natriuret Pep Total Protein Albumin Globulin Albumin/Globulin Ratio Lipase Procalcitonin 0.07 Assessment & Plan Assessment & Plan narrative: 1. Severe vertigo, acute, present on admission, active -patient with onset of severe vertigo few hours prior to arrival with associated nausea and vomiting of food emesis and perfuse diaphoresis.. Patient had similar episode in May of 2019 and had MRI in July 2019 with no acute findings. -patient with right ear tinnitus and fullness with left lateral nystagmus and describes vision ?shaking?. Patient is afebrile, white count is 13.2 and procalcitonin 0.07. -ordered meclizine 25 mg every 6 hours as needed for dizziness. -ordered Zofran 4 mg every 6 hours as needed for nausea -ordered MRI of the head, internal auditory canals to evaluate for acoustic n euroma/schwannoma due to recurrent symptoms. 2. Hypokalemia, acute, present on admission, active -patient has had vomiting and diarrhea that he describes intermittent. -serum potassium upon admission is 3.1. -ordered potassium chloride 60 mEq IV x1. -ordered Metamucil fiber pack daily. 3. Essential hypertension, chronic, present on admission, active -patient marked elevated blood pressure on arrival 184/93, elevation related to acute symptomatology. Blood pressure later on admission of the or is 134/83. -will continue patient's home regimen of metoprolol 50 mg twice daily and triamterene 37.5 mg with hydrochlorothiazide 25 mg daily. 4. Dyslipidemia, chronic, stable. -patient with mildly elevated transaminase with an AST is 65 and ALT of 82 most likely related to hyperlipidemia and can be followed up outpatient basis. -continue home regimen of simvastatin 20 mg daily 5. Obstructive sleep apnea, using CPAP, chronic, stable. -Requested respiratory therapy to consult evaluate treat. -CPAP per RT protocol, may use own machine. 6. Obesity, BMI 36.2, chronic. -requested dietitian to consult. Isolation: None VTE prophylaxis: Bilateral SCDs, enoxaparin IV fluid: Normal saline 75 cc is discontinued. Diet: Heart healthy moderate carbohydrate diet. Code status: FULL CODE, patient's Taisha surrogate decision maker. The patient is admitted to the hospital for monitoring and further evaluation following severe vertigo with multiple associated symptoms. The patient is admitted as observation with expected length of stay to be less than 2 midnights. Scores GCS [place] coma scale eye opening: Spontaneous [place] coma scale verbal response: Orientated [place] coma scale motor response: Obey commands Rupesh coma scale total score: 15
[2020-01-26] MEDS: PANTOPRAZOLE 20 MG TABLET PO (05:49)
--- NOTE | 2020-01-26 06:42 | PC.ADMIT ---
Safe hand off from [facility]. Patient arrived on floor at 0015. Patient was able to transfer to bed with stand by assistance. VSS, lung sounds clear. Tele: NS w/ 1st degree AV block. Patient was educated about the use of call light it is within reach. Bed is low and locked, bed alarm is activated. [id number] Admission Note: The patient,Gus Dawn,60 y/o, was given written information regarding hospital policies, unit procedures and contact persons. Patient's smoking status: Former smoker. Vital Signs - 8 hr 01/25/20 23:00 01/25/20 23:30 01/26/20 00:00 Temperature Pulse Rate 91 H 91 H 92 H Respiratory Rate 20 21 21 Blood Pressure Blood Pressure [Left Arm] 150/84 H 143/86 H 134/83 Pulse Oximetry 96 94 95 01/26/20 00:34 01/26/20 04:15 Temperature 97.3 F L Pulse Rate 105 H Respiratory Rate 18 Blood Pressure 142/90 H Blood Pressure [Left Arm] Pulse Oximetry 95 98
[2020-01-26 06:46] LABS: Add Manual Diff / Slide Review NO; Basophils Absolute Auto 0 /uL (0-100); Basophils Percent Auto 0.3 % (0-2); Eosinophils Absolute Auto 200 /uL (0-450); Eosinophils Percent Auto 1.4 % (2-4); Hematocrit 41.2 % (41-53); Hemoglobin 14.4 g/dL (13.5-17.5); Lymphocytes Absolute Auto 2600 /uL (1100-4500); Lymphocytes Percent Auto 23.9 % (25-40); Mean Corpuscular HGB Conc 34.9 % (30-36); Mean Corpuscular Hemoglobin 29.2 PG (26-34); Mean Corpuscular Volume 83.6 fL (80-100); Monocytes Absolute Auto 1000 /uL (0-900); Monocytes Percent Auto 8.7 % (3-14); Neutrophils Absolute Auto 7200 /uL (1500-7000); Neutrophils Percent Auto 65.7 % (50-75); Platelet Count 196 X10^3/uL (150-400); Red Blood Cell Count 4.92 X10^6/uL (4.5-5.9); Red Cell Distribution Width 14.8 % (11.6-14.8)
[2020-01-26 07:03] LABS: BUN Creatinine Ratio 20.8 (6-22); Blood Urea Nitrogen 16 mg/dL (9-20); Carbon Dioxide 25 mmol/L (22-32); Chloride 105 mmol/L (98-107); Estimated Glomerular Filt Rate > 60.0 mL/min (>60); Glucose 141 mg/dL (80-110); HEMOLYSIS 24 (0-50); Magnesium 1.9 mg/dL (1.6-2.3); Potassium 4.2 mmol/L (3.4-5.1); Sodium 136 mmol/L (137-145)
--- NOTE | 2020-01-26 08:00 | DI.MRI.S_ITS ---
PROCEDURE: MR STROKE Pre- and post-contrast brain MRI, non-contrast brain MR angiogram, pre- and postcontrast neck MR angiogram INDICATIONS: dizziness, HTN, DM r/o posterior infarct TECHNIQUE: Brain: Noncontrast axial T1 spin echo, axial T2 fast spin echo, sagittal and axial FLAIR, coronal T2 fast spin echo, axial gradient echo, axial diffusion and ADC through the brain. After the administration of contrast, axial 3D VIBE of the cranial vasculature and brain. Brain MRA: Non-contrast 3-D time of flight MR angiogram, with multiple ptvzyyu-rwunhuzru-ioxlankeep (MIP) reformats performed. Neck MRA: Axial and sagittal TruFISP through the neck. Coronal dynamic MR angiogram during administration of contrast in the arterial and venous phases, with 3-dimenstional sdxcwuj-nudkfbmkz-eombhwqwyi (MIP) reformats constructed from subtraction images. COMPARISON: None. FINDINGS: Image quality: Excellent. BRAIN: CSF spaces: Ventricles are normal in size and shape. Basal cisterns are patent. No extra-axial fluid collections. Brain: No intracranial bleeds or mass effects. Gupta-white matter interface is normal. Diffusion weighted images show no acute ischemic insults. Brainstem appears normal. Normal intravascular flow voids are present. No abnormal intracranial enhancement. Skull and face: Calvarial marrow signal is normal. Orbits appear normal. Sinuses: Sinuses and mastoids are clear. BRAIN MR ANGIOGRAM: Anterior circulation: Intracranial internal carotid arteries are normal in size and enhancement. The flow within the paired anterior cerebral arteries is normal and symmetric. The flow within the middle cerebral arteries is normal and symmetric. The anterior communicating artery is seen. No stenoses, occlusions, or aneurysms. Posterior circulation: The visualized portions of the vertebral arteries demonstrate normal caliber, and join to form a normal appearing basilar artery. The flow within the posterior cerebral arteries is normal and symmetric. No stenoses, occlusions, or aneurysms. NECK MR ANGIOGRAM: Carotids: Great vessels demonstrate a conventional anatomy as they arise from the aortic arch. The origins of the common carotid arteries appear patent. The calibers and courses of both common carotid arteries are normal. The bifurcation regions appear normal bilaterally. The internal carotid arteries demonstrate normal course and caliber. Posterior circulation: The origins of the vertebral arteries appear patent. More superior portions of both vertebral arteries demonstrate normal course and caliber, and join to form a normal appearing basilar artery. Miscellaneous: Subclavian arteries appear patent. Pre-contrast images through the neck show no soft tissue abnormalities. IMPRESSION: BRAIN MRI: No evidence of acute ischemia No acute signal abnormality or abnormal enhancement BRAIN MR ANGIOGRAM: No focal stenosis or occlusion NECK MR ANGIOGRAM: No hemodynamically significant stenosis identified Dictated by: Sarthak Vega M.D. on 01/26/2020 at 12:38 Approved by: Sarthak Vega M.D. on 01/26/2020 at 12:45
[2020-01-26] MEDS: PSYLLIUM HUSK 1 PACKET PO (08:39)
[2020-01-26] MEDS: ENOXAPARIN 40 MG/0.4 ML SYRINGE SUBCUT (08:39)
[2020-01-26] MEDS: METOPROLOL IR 50 MG TABLET PO (08:40)
[2020-01-26] MEDS: TRIAMTERENE/HCTZ 37.5/25 TABLET 1 CAP PO (08:41)
--- NOTE | 2020-01-26 09:50 | CM.DANOTE ---
Addendum entered by DERRELL Long 01/26/20 14:40: ADD: MRI results negative and PT initial eval and assess suggests likely Meniere's Disease and recommend outpt ENT follow up but safe for d/c home with spouse assist. Per MD, pt medically stable to d/c home with spouse today and no identified barriers to discharge. Spouse bedside and plans to have son stay a couple days for additional assist at discharge. BF Addendum entered by DERRELL Long 01/26/20 10:34: ADD: Per MD during bedside rounding, pending MRI to r/o stroke as pt high risk, then likely home pending new PT orders to determine if trained vestibular PT available to assess pt bedside vs outpt follow up if PT not available today. SW placed PT orders and pt just taken off floor for MRI at 1030. BF Original Note: Patient is a 60 year old male who was admitted on 01/25/20 for N/V, dizziness, sweating. Pt has [employer] for insurance and his PCP is Dr. Solitario at the [facility]. EMR was reviewed. Per MD, pt with a hx of sleep apnea and vertigo in 2018 and was admitted for Severe Vertigo with nausea/vomiting. MRI ordered and planned for today around 1100. SW met bedside with pt and explained role and updated white board and pt confirmed that he lives at home in [place] with his spouse and is independent with ADL's at baseline and does not use equipment to ambulate and drives. Pt is retired from the [employer] and his spouse still works but is available for assist if needed and local step son and supportive neighbor available if needed. Pt denies any hx of HH or SNF but states since his first episode of vertigo in May 2019 last year he has been to ENT and was cleared for travel by plane at the beginning of this year 2019. Pt typically drives unless he begins to feel symptoms of dizziness which have only occurred a few times since May 2019. Pt does not anticipate any needs at d/c and preference is to d/c home with spouse assist when stable and he is hopeful his inner ear/tennitis can be more specifically identified. Plan: SW to follow for MRI results today towards confirming safe plan of d/c home with spouse. Possible benefit from PT eval regarding pt's vertigo symptoms. DERRELL Long Discharge Planning/Care Management CM Discharge Assessment Start: 01/26/20 09:47 Freq: Status: Active Protocol: Document 01/26/20 09:48 BF (Rec: 01/26/20 09:50 BF [id number]) Discharge Planning Assessment Assigned [employer]eder DERRELL Mera DPOA/Assigned Designee Name informally spouse Laura Contact Information [phone] Advance Directives? Yes History Provided By Patient,Medical Record Has Patient been admitted in last 30 No days? Prior Living Arrangements House Household Members spouse Type of transporation used prior to Drives own vehicle admit Comment Lives at home with spouse and is Independent with ADL's at baseline and does not need equipment to ambulate Independent with ADL's Yes Is patient alert and oriented? Yes Caregiver for Another No Patient/Family Preference OP PT Therapy Comment Home with possible outpt PT for vertigo symptoms Barriers to Discharge No Discharge Plan Home Transportation Arrangement Pt states spouse is available for transport at d/c Referrals Initiated None needed Whiteboard Updated in Patient Room with Yes name and ext. # of [employer] Feeder Review Status In Process Please Provide Date Initial DC 01/26/20 Assessment Was Performed Next Review Type Continued Stay Review
--- NOTE | 2020-01-26 10:35 | PC.NURSE ---
Day shift note: Patient awake, alert, pleasantly oriented. Received on RA, 95%. Sitting up in bed, no c/o SOB, nausea, vomiting, dizziness or diaphoretic. BG 116 mg/dl this am. Urinating QS, up to BR. Good PO intake 80% breakfast, tolerated diet. SCDs in place while in bed. Calls appropriately for staff assist. Off floor to MRI at 1030 via WC by
--- NOTE | 2020-01-26 14:21 | PT.IPTN ---
Physical Therapy Treatment Note M2 PT-IP Current Condition Start: 01/26/20 14:02 Freq: NEEDED Status: Active Protocol: Document 01/26/20 13:20 [facility] (Rec: 01/26/20 14:21 [facility] [id number]) Physical Therapy Current Condition Current Condition Evaluation Date 01/26/20 Treatment Diagnosis Vertigo, imbalance, nausea Onset Date 01/25/20 M3 PT-IP Subjective Start: 01/26/20 14:02 Freq: NEEDED Status: Active Protocol: Document 01/26/20 13:20 [facility] (Rec: 01/26/20 14:21 [facility] [id number]) Subjective Physical Therapy Visit Type Type Initial Evaluation Visit Start Time 13:20 Visit Stop Time 14:00 Total Visit Minutes 40 Notes Pt is a 60 year old male who presented to the ER on the evening of 01/25/20 with complaints of vertigo, nausea, vomiting, and severe sweating . Symptoms continued constantly for ~4 hours. Pt notes he had a similar episode on 06/09/19, which lasted about two hours, and then has had other, smaller episode over the past few months. Pt notes that he has had significant hearing loss in his right ear, and has additionally had fairly constant right-sided tinnitus over the past 6-8 months. Physical Therapy Visit Comments Patient Comments I'm feeling much better today . There is still a little something there, but I was able to get up and use my urinal without any trouble. M4 PT-IP Mobility and Gait Start: 01/26/20 14:02 Freq: NEEDED Status: Active Protocol: Document 01/26/20 13:20 [facility] (Rec: 01/26/20 14:21 [facility] [id number]) PT-Bed Mobility Assessment Rolling Type of Rolling Roll to Left Level of Assist Independent Supine to Sit Supine to Sit Independent Sit to Supine Sit to Supine Independent Scooting Scooting to Edge of Bed Independent PT-Transfer Assessment Sit to and From Stand Sit to and from Stand Independent Equipment Transfer Assistive Device None PT-Balance Assessment Sitting Balance and Reactions Static Sitting Balance Ability Normal Dynamic Sitting Balance Ability Normal Comments Other Balance Tests/Deviations/Treatment 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 with 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 closed for 30 seconds M5 PT-IP Objective Assessments Start: 01/26/20 14:02 Freq: NEEDED Status: Active Protocol: Document 01/26/20 13:20 [facility] (Rec: 01/26/20 14:21 [facility] [id number]) Orientation Orientation/Cognition Level of Alertness Alert Orientation Name,Age,Situation Language Function Ability No Deficits Noted Safety Awareness Understands Safety Issues Memory Description No Deficits Noted Other Assessments Other Other Assessments Auditory screening: Subjective complaints of significantly decreased ability to hear tuning fork on right side Saccades: WNL Smooth Pursuit: possible saccadic movement with visual tracking R, difficult to assess properly in in-patient room light. Thrust/Heave Tests: Positive bilaterally M7 PT-IP Assessment and Plan Start: 01/26/20 14:02 Freq: NEEDED Status: Active Protocol: Document 01/26/20 13:20 [facility] (Rec: 01/26/20 14:21 [facility] [id number]) PT Summary Assessment and Plan Potential Rehabilitation Potential Good Status of Condition at Evaluation Evolving Summary Assessment Summary Pt presents with a history of episodes of spontaneous vertigo lasting 2-4 hours every few months. Pt has noticed decreased hearing in his right side, as well as aural fullness and right-sided tinnitus over the last six months. Due to the recurrent nature of his complaints, the decrease in hearing, aural fullness, and tinnitus, symptoms are strongly suggestive of Meniere's Disease. Would recommend follow-up visit with ENT for further testing. Pt appears to have recovered well from this episode, and seems to be stable and safe up moving around his room. Further in- patient PT is not indicated at this time. Pt and are planning to have their son stay with them over the next few days when the is at work just in case. Frequency of Treatment Frequency Of Treatment Discharge Discharge Recommendations PT Discharge Recommendations Home,Home with Assistance
--- NOTE | 2020-01-26 14:31 | P.DS_ITS ---
History of Present Illness History of Present Illness Date Patient Seen: 01/26/20 Time Patient Seen: 14:31 Chief complaint: nausea/vomiting, dizziness, sweating Narrative: As per [facility] Angel: Mr. Gus Vyas is a 60-year-old male with history significant for hypertension, hyperlipidemia, diabetes type 2 on oral control, obstructive sleep apnea and vertigo who presents to the ER with a sudden onset of dizziness, li ghtheadedness with profuse diaphoresis with associated shortness of breath and nausea vomiting several hours prior to. Patient has had previous episodes that who presented similar but not to the intensity experienced today. He describes today's episode as far above what he has previously experienced prompting him to present to the ER for evaluation. The patient denies complaints of chest pain o r palpitations and has no headache or recent trauma. States he believes his symptoms began with head turning but upon examination is non reproducible. Patient complains of right ear fullness and tinnitus and has a history of seasonal allergies. Patient's last episode of similar symptoms was in May of 2019 at which time he was diagnosed with labyrinthitis. He subsequently had an MRI completed on 07/31/2019 which showed no acute changes condom moderate volume loss, minimal periventricular white matter microvascular ischemic changes. The patient did denies recent illness or known COVID-19 exposures. He denies fevers or chills has nasal congestion but no sore throat. He denies headache or pain but endorses objects would appear to shake in his vision. He denies chest pain or palpitations. He has no shortness of breath cough or wheezing. He had nausea with vomiting earlier today with food content emesis with no blood. He further describes having episodic diarrhea for which he has been using a Imodium last used today. He describes stools as varying between loose, watery or formed. He denies difficulty in urinating. The patient is independent in all activities uses no assistive devices. Patient is afebrile upon arrival at 96.3, heart rate is 89, blood pressure 184/93, respiratory rate is 18, O2 saturation is 96% on room air. His oxygen saturation decreased while in the ER to 88% worries but on nasal cannula 2 liters/minutes with return of saturation back 96%. A chest x-ray obtained which finds no acute cardiopulmonary processes. A CT of the head finds no intra cranial pathology. Twelve lead EKG finds normal sinus rhythm with a ventricular rate of 81 with a first-degree AV block with a PA interval of 217 micro seconds. He has no ectopy ST or T-wave changes. He has a mildly elevated white count at 13.2, hemoglobin 15.9, hematocrit of 45.5 and platelets of 246. Coagulation studies find PT of 11.4, INR of 1.0 and a PTT of 27. Has a D-dimer less than 200. On electrolytes he has a sodium 139 and potassium of 3.1. His BUN is 16 with a creatinine 0.93. His nonfasting glucose is 151. On liver functions as total bilirubin is 0.6, AST is 65, ALT of 82 and alkaline phosphatase 60 with an albumin of 8.4. Total CK is 84 and troponin is less than 0.012 x 2. Procalcitonin is 0.07. The patient is admitted to the medicine team for further evaluation and workup for severe vertigo with nausea vomiting. Discharge Providers Provider Date of admission: 01/25/20 23:21 Discharge Date: 01/26/20 Consults: 01/26/20 00:38 Consult to Dietitian, Adult Routine Comment: Reason For Exam: Diabetes, obesity Consult to Discharge Planning Routine Comment: 01/26/20 02:01 Consult to Respiratory Therapy Evaluate & Treat Comment: EZE CPAP Physician Instructions: Evaluate and treat 01/26/20 10:31 Consult to Physical Therapy Evaluate & Treat Comment: If PT available to assess for vertigo/vestibular Physician Instructions: Evaluate and Treat Discharge provider: Dale Galindo DO Summary Hospital Course Discharge Diagnosis: 1. Severe vertigo, acute, present on admission, active 2. Hypokalemia, acute, present on admission, 3. Essential hypertension, chronic, present on admission, active 4. Dyslipidemia, chronic, stable. 5. Obstructive sleep apnea, using CPAP, chronic, stable. 6. Obesity, BMI 36.2, chronic. Hospital Course: Mr. Gus Vyas is a 60-year-old male with history significant for hypertension, hyperlipidemia, diabetes type 2 on oral control, obstructive sleep apnea and vertigo who presented to the ER with a sudden onset of dizziness, lightheadedness with profuse diaphoresis with associated shortness of breath and nausea vomiting several hours prior to this event. He had a similar episode a few years ago and was diagnosed with either BPPV or Meniere's disease and was treated with meclizine. This resolved spontaneously. Patient had a negative troponin and no evidence of ischemia on EKG, no further cardiac workup was necessary. On admission exam patient did have horizontal nystagmus consistent with either BPPV or Meniere's disease given ringing in his ears. His symptoms did improve with medication over the course of his hospitalization. Given his past medical history including hypertension, hyperlipidemia, and type 2 diabetes and sudden onset of severe dizziness he was ruled out for a posterior CVA with an MRI which did not show any evidence of infarcts. Patient's symptoms had improved the next day on meclizine, he was seen by Physical therapy and cleared for discharge home. He will follow-up outpatient with physical therapy and do recommend a vestibular specialist. 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 Exam Vital Signs (past 8 hours): - 01/26/20 06:52 01/26/20 08:52 01/26/20 09:00 Temperature 98.1 F Pulse Rate 81 92 H Respiratory Rate 16 16 Blood Pressure 141/91 H 155/94 H Pulse Oximetry 97 95 96 01/26/20 11:30 01/26/20 12:00 Temperature 98.6 F Pulse Rate 80 94 H Respiratory Rate 16 18 Blood Pressure 132/91 H 141/90 H Pulse Oximetry 96 98 Oxygen Delivery Method Room Air Oxygen Flow Rate 0 Narrative Exam Narrative: GENERAL APPEARANCE: WELL DEVELOPED, WELL NOURISHED, IN NO ACUTE DISTRESS. SKIN: INSPECTION OF THE SKIN REVEALS NO RASHES, ULCERATIONS OR PETECHIAE. HEENT: NORMOCEPHALIC ATRAUMATIC, EXTRAOCULAR MUSCLES ARE INTACT, OROPHARYNX IS CLEAR AND MUCOUS MEMBRANES ARE MOIST, NECK IS SUPPLE WITHOUT ADENOPATHY NECK: SUPPLE AND SYMMETRIC. THERE WAS NO THYROID ENLARGEMENT, AND NO TENDERNESS, OR MASSES WERE FELT. CHEST: NORMAL AP DIAMETER AND NORMAL CONTOUR WITHOUT ANY KYPHOSCOLIOSIS. LUNGS: AUSCULTATION OF THE LUNGS REVEALED NO WHEEZES, RHONCHI, OR RALES. CARDIOVASCULAR: THERE WAS A REGULAR RATE AND RHYTHM WITHOUT ANY MURMURS, GALLOPS, RUBS. PERIPHERAL PULSES WERE 2+ AND SYMMETRIC. ABDOMEN: SOFT AND NONTENDER WITH NORMAL BOWEL SOUNDS. NO ASCITES WAS NOTED. MUSCULOSKELETAL: THERE WAS NO TENDERNESS OR EFFUSIONS NOTED. MUSCLE STRENGTH AND TONE WERE NORMAL. EXTREMITIES: NO CYANOSIS, CLUBBING OR EDEMA. NEUROLOGIC: ALERT AND ORIENTED X 3. NORMAL AFFECT. GAIT WAS NORMAL. STRENGTH IS +5/5 IN THE UPPER EXTREMITIES AND LOWER EXTREMITIES BILATERALLY. SENSATION TO TOUCH WAS NORMAL. Objective Labs Result Diagrams: 01/26/20 05:55 01/26/20 05:55 Labs: Laboratory Results - last 24 hr 01/25/20 01/25/20 01/25/20 19:53 19:53 19:53 WBC 13.2 H RBC 5.44 Hgb 15.9 Hct 45.5 MCV 83.6 MCH 29.2 MCHC 34.9 RDW 14.6 Plt Count 246 Neut % (Auto) 45.8 L Lymph % (Auto) 42.2 H Edmunds % (Auto) 8.0 Eos % (Auto) 2.9 Baso % (Auto) 1.1 Neut # (Auto) 6100 Lymph # (Auto) 5600 H Edmunds # (Auto) 1100 H Eos # (Auto) 400 Baso # (Auto) 100 PT 11.4 INR 1.0 APTT 27 D D-Dimer < 200 Sodium 139 Potassium 3.1 L Chloride 101 Carbon Dioxide 25 BUN 16 Creatinine 0.93 Estimated GFR > 60.0 BUN/Creatinine Ratio 17.2 Glucose 151 H Calcium 9.6 Magnesium Total Bilirubin 0.6 AST 65 H ALT 82 H Alkaline Phosphatase 60 Total Creatine Kinase 84 CK-MB (CK-2) TNP CK-MB (CK-2) Rel Index TNP Troponin I < 0.012 NT-Pro-B Natriuret Pep 21 Total Protein 8.4 H Albumin 4.8 Globulin 3.6 Albumin/Globulin Ratio 1.3 Lipase 140 Procalcitonin 01/25/20 01/25/20 01/26/20 19:53 22:12 05:55 WBC 11.0 RBC 4.92 Hgb 14.4 Hct 41.2 MCV 83.6 MCH 29.2 MCHC 34.9 RDW 14.8 Plt Count 196 Neut % (Auto) 65.7 Lymph % (Auto) 23.9 L Edmunds % (Auto) 8.7 Eos % (Auto) 1.4 L Baso % (Auto) 0.3 Neut # (Auto) 7200 H Lymph # (Auto) 2600 Edmunds # (Auto) 1000 H Eos # (Auto) 200 Baso # (Auto) 0 PT INR APTT D-Dimer Sodium Potassium Chloride Carbon Dioxide BUN Creatinine Estimated GFR BUN/Creatinine Ratio Glucose Calcium Magnesium Total Bilirubin AST ALT Alkaline Phosphatase Total Creatine Kinase CK-MB (CK-2) CK-MB (CK-2) Rel Index Troponin I < 0.012 NT-Pro-B Natriuret Pep Total Protein Albumin Globulin Albumin/Globulin Ratio Lipase Procalcitonin 0.07 01/26/20 05:55 WBC RBC Hgb Hct MCV MCH MCHC RDW Plt Count Neut % (Auto) Lymph % (Auto) Edmunds % (Auto) Eos % (Auto) Baso % (Auto) Neut # (Auto) Lymph # (Auto) Edmunds # (Auto) Eos # (Auto) Baso # (Auto) PT INR APTT D-Dimer Sodium 136 L Potassium 4.2 Chloride 105 Carbon Dioxide 25 BUN 16 Creatinine 0.77 Estimated GFR > 60.0 BUN/Creatinine Ratio 20.8 Glucose 141 H Calcium 9.0 Magnesium 1.9 Total Bilirubin AST ALT Alkaline Phosphatase Total Creatine Kinase CK-MB (CK-2) CK-MB (CK-2) Rel Index Troponin I NT-Pro-B Natriuret Pep Total Protein Albumin Globulin Albumin/Globulin Ratio Lipase Procalcitonin Discharge Plan Discharge Plan Patient Disposition: Home Discharge comment: You were admitted to the hospital with dizziness. This is likely due to meniere's disease based on prior history and a normal appearing MRI. You should follow up with your PCP, you can consider benzodiazepines as an outpatient or other therapies. Recommend treatment with OTC relief of allergy symptoms with antihistamine, and flonase. Recommend referral for vestibular rehab, outpatient ENT follow up. Discharge orders & Medications Prescriptions: Continued simvastatin 20 mg tablet 20 mg PO QPM RF: 0 metformin 500 mg tablet 500 mg PO BID RF: 0 pantoprazole [Protonix] 20 mg tablet,delayed release (DR/EC) 20 mg PO DAILY RF: 0 metoprolol tartrate 50 mg tablet 50 mg PO BID RF: 0 triamterene-hydrochlorothiazid 37.5-25 mg tablet 1 tab PO DAILY RF: 0 (DME) Respironics Remstar CPAP Qty: 1 RF: 0 Discharge Health Status Health Concerns: Meniere's disease Diet/Activity/Treatments Diet: Diet as Tolerated Activity: As tolerated Visit Report/Discharge Packet Instructions: DI for Meniere's Disease Visit Report Forms: Patient Portal/API, Stroke Signs & Symptoms Discharge Data Attending Provider: Dale Mars Admit Date/Time: 01/25/20 23:21 Discharges patient from system. Discharge Date/Time: 01/26/20 15:20
--- NOTE | 2020-01-26 14:52 | PC.NURSE ---
Received order from MD for pt to be DC today. DC instructions were given and relayed to the patient. He verbalized understanding. Patient is currently waiting for her to come and pick him up. Advised pt to call his PCP for his follow up appt. He concurred. Pt offers no questions at this time.
--- NOTE | 2020-01-26 15:54 | DIET.PN ---
Dietary Progress Note Assessment: Mr. Dawn is a 60-year-old male with history significant for hypertension, hyperlipidemia, diabetes type 2, obstructive sleep apnea and vertigo who presented to the ER with a sudden onset of dizziness, lightheadedness, shortness of breath and nausea with vomiting. He reports previous episodes, but nothing like this event. He reports generally good glucose control through diet and med management of metformin and trulicity. 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 He reports good understanding of carb consistent diet. HT: 182.88cm WT: 121kg UBW: BMI: 36.2 Labs: Gluc: 151, 141 A1c: around 8% per pt report MNA: 14 Bahman: 23 Nutrition Diagnosis: Altered Nutrition related labs related to impaired glucose metabolism, lack of previous exposure to accurate nutrition information as evidenced by pt report, dx of diabetes, previous diet high in refined carbohydrates.? Interventions: 1. Reviewed pathophysiology of diabetes and impact of nutrition/diet on blood sugar control.? 2. Discussed the effect of carbohydrates/protein/fat on blood sugar control.? Stressed importance of consistent carbohydrate intake at each meal and provided instructions for recommended servings/portions of carbohydrates/protein per meal. 3. Discussed healthy weight loss goals of 1-2lbs per week through diet and exercise.? 4. Recommend monitoring fasting and alternating 2 hr PP mealtime glucose. Diet Order: Carb Consistent Diet (3) EER: 2200 marily; Pro 120-145g (1-1.2) Monitoring/Evaluations: BG, PO's, weight
--- NOTE | 2020-01-28 23:52 | PC.NURSE ---
Late Entry: Potassium infusion initiated on 01/25 at 01:06, infusion complete at 07:06.
== END 2020-01-26 15:20 | disposition home or self-care (01) ==
LOC: ED 19:47 → AC 23:22
PROVIDERS: Admitting Provider Nurse Practitioner Adult Health; Emergency Provider Emergency Medicine; Visit Provider Nurse Practitioner Adult Health
DX: R42 Dizziness and giddiness (principal); R11.2 Nausea with vomiting, unspecified; R61 Generalized hyperhidrosis; I10 Essential (primary) hypertension; E78.5 Hyperlipidemia, unspecified; E66.9 Obesity, unspecified; E11.9 Type 2 diabetes mellitus without complications; G47.33 Obstructive sleep apnea (adult) (pediatric); E87.6 Hypokalemia; Z68.36 Body mass index [BMI] 36.0-36.9, adult; Z79.84 Long term (current) use of oral hypoglycemic drugs
CPT/HCPCS: 36415; 70450; 70548; 70553; 71045; 80048; 80053; 82550; 82962; 83690; 83735; 83880; 84145; 84484; 85025; 85379; 85610; 85730; 93005; 94760; 94762; 96361; 96365; 96366; 96372; 96374; 96375; 97161; 99285; G0378; J1650; J2405; J3480

== ENCOUNTER 2020-07-21 13:58 | Emergency (ER) | payer OTHER, SELFPAY ==
[2020-02-03 09:02] VITALS: BMI 35.2
[2020-07-21 14:05] VITALS: BP 156/87; PULSE 102; RESP 16; TEMP 37.2; O2SAT 96; BMI 33.9
[2020-07-21 14:06] VITALS: PULSE 109; RESP 20; TEMP 37.2; O2SAT 96
[2020-07-21 14:07] VITALS: BP 156/87
--- NOTE | 2020-07-21 14:43 | ED.MALEGU ---
HPI - Male Genitourinary <DERECK Orourke - Last Filed: 07/21/20 19:23> General Chief complaint: Urogenital-Male Stated complaint: possible kidney infection Time Seen by Provider: 07/21/20 14:03 Source: patient Mode of arrival: Ambulatory History of Present Illness HPI Narrative: 60yo male presents to the ED for concerns about a kidney infection. He states his doctor at [facility] was concerned that he may have a renal infection but could not see him in the clinic. Patient was started on to the ER. He states he has had dysuria, increased urination, urinary frequency, and intermittent urinary incontinent that started yesterday afternoon. He reported back pain approximately 2-3 days ago, worse on the right. Patient states his temperature has been 99.5F today. Denies any other symptoms such as chest pain, shortness of breath, cough, nausea, vomiting, diarrhea, or any other concerns. Patient states years ago he had an abscess on his liver that was drained by surgery, denies any RUQ pain. Related Data Home Medications Medication Instructions Recorded Confirmed metformin 500 mg tablet 500 mg PO BID 12/09/18 02/03/20 metoprolol tartrate 50 mg tablet 50 mg PO BID 12/09/18 02/03/20 pantoprazole 20 mg tablet,delayed 20 mg PO DAILY 12/09/18 02/03/20 release Respironics Remstar CPAP #1 ea 06/19/19 02/03/20 simvastatin 20 mg PO QPM 06/19/19 02/03/20 triamterene 37.5 1 tab PO DAILY tab 06/19/19 02/03/20 mg-hydrochlorothiazide 25 mg tablet meclizine 25 mg chewable tablet 25 mg PO DAILY 02/03/20 02/03/20 Previous Rx's Medication Instructions Recorded cefixime 400 mg PO DAILY 14 Days #14 cap 07/21/20 Allergies Allergy/AdvReac Type Severity Reaction Status Date / Time No Known Allergies Allergy Unknown Verified 07/21/20 14:08 Review of Systems <DERECK Orourke - Last Filed: 07/21/20 19:23> Review of Systems Narrative: REVIEW OF SYSTEMS: GENERAL: Denies fever. HENT: No head trauma. CARDIOVASCULAR: No chest pain. RESPIRATORY: No shortness of breath or cough. GASTROINTESTINAL: Denies any abdominal pain. GENITOURINARY: Reports right-sided flank pain, dysuria, and urinary incontinence, see HPI. MUSCULOSKELETAL: No trauma. INTEGUMENTARY: No rash, lesions, or pruritus. NEURO: No numbness, tingling, memory loss, confusion, or headaches. PSYCH: No behavior or mood changes. Patient History <DERECK Orourke - Last Filed: 07/21/20 19:23> Medical History Chronic seasonal allergic rhinitis Clicking tinnitus of right ear Hyperlipidemia Hypertension Liver abscess Obesity (BMI 30-39.9) Obstructive sleep apnea of adult Type 2 diabetes mellitus Vertigo Surgical History History of cholecystectomy History of surgery on arm Family History Father Medical history unknown Mother Hypertension Cardiac disease Smoker Social History marital status: details: cassie Sanchez, lives in [place] household members: spouse lives independently: Yes caregiver/support person: No housing: house pets and animals: Yes (2 dogs) occupational status: other Smoking Status: Former smoker Smoking Status: Former smoker alcohol intake frequency: holidays/special occasions only Substance Use Type: does not use Exam <DERECK Orourke - Last Filed: 07/21/20 19:23> Initial Vital Signs Initial Vital Signs: Vital Signs Temperature 99 F 07/21/20 14:05 Pulse Rate 102 H 07/21/20 14:05 Respiratory Rate 16 07/21/20 14:05 Blood Pressure 156/87 H 07/21/20 14:05 Pulse Oximetry 96 07/21/20 14:05 PHYSICAL EXAMINATION: GENERAL: 60-year-old pleasant gentleman, hemodynamically stable, awake alert and awake, answers questions appropriately. HENT: Normocephalic, atraumatic. EYES: Conjunctiva pink, sclera white, no periorbital swelling. CARDIOVASCULAR: S1 and S2 sounds normal. Regular rate and rhythm, no murmurs, clicks, or bruits. No pedal edema. RESPIRATORY: Normal respiratory rate, trachea midline, airway patent. No stridor, nasal flaring or accessory muscle use. Lungs are clear in all youngblood without wheeze, rhonchi, or crackles. GASTROINTESTINAL: Bowel sounds normoactive. Abdomen is soft and non-tender. No organomegaly, no palpable masses. GENITALURINARY: Right-sided flank tenderness. RECTAL/PROSTATE: SONU Flores present during exam. No tenderness with palpation of the prostate, not boggy. Patient tolerated exam well. MUSCULOSKELETAL: Normal gait and coordination. Equal tone and mass bilaterally. EXTREMITIES: CMS intact, no pedal edema. SKIN: Warm, dry, soft, appropriate color for ethnicity. No lesions, rashes, or wounds to visualized areas. NEURO: Alert and Oriented X 3. Good coordination. No ataxia, or sensory deficits, or cognitive issues. PSYCH: Appropriate affect and mood. <Mckinley Olguin MD - Last Filed: 07/22/20 18:39> Initial Vital Signs Initial Vital Signs: Vital Signs Temperature 99 F 07/21/20 14:05 Pulse Rate 102 H 07/21/20 14:05 Respiratory Rate 16 07/21/20 14:05 Blood Pressure 156/87 H 07/21/20 14:05 Pulse Oximetry 96 07/21/20 14:05 Course <DERECK Orourke - Last Filed: 07/21/20 19:23> Course Course Narrative: Bladder scan performed by tech <100ml in bladder post void. Normal saline initiated to slight hyponatremia, IV access for CT scan due to elevated white blood cell count and history of an abdominal abscess in the past. Orders Ordered: Discontinued Medications Sodium Chloride (Normal Saline 0.9%) 1,000 mls @ 1,000 mls/hr IV BOLUS ONE Stop: 07/21/20 16:32 Last Infusion: 07/21/20 17:26 Dose: 0 mls/hr Documented by: Admin: 07/21/20 17:03 Dose: 1,000 mls/hr Documented by: PRASHANTH Consultations Consultation #1: Patient staffed with Dr. Olguin discussed test, test results, plan of care. Vital Signs Vital signs: Vital Signs - 8 hr 07/21/20 14:05 07/21/20 14:06 07/21/20 14:07 Temperature 99 F 99.0 F Pulse Rate 102 H 109 H Respiratory Rate 16 20 Blood Pressure 156/87 H 156/87 H Pulse Oximetry 96 96 07/21/20 17:24 Temperature Pulse Rate 94 H Respiratory Rate 18 Blood Pressure 152/84 H Pulse Oximetry 98 <Mckinley Olguin MD - Last Filed: 07/22/20 18:39> Orders Ordered: Discontinued Medications Sodium Chloride (Normal Saline 0.9%) 1,000 mls @ 1,000 mls/hr IV BOLUS ONE Stop: 07/21/20 16:32 Last Infusion: 07/21/20 17:26 Dose: 0 mls/hr Documented by: Admin: 07/21/20 17:03 Dose: 1,000 mls/hr Documented by: PRASHANTH Vital Signs Vital signs: Vital Signs - 8 hr 07/21/20 14:05 07/21/20 14:06 07/21/20 14:07 Temperature 99 F 99.0 F Pulse Rate 102 H 109 H Respiratory Rate 16 20 Blood Pressure 156/87 H 156/87 H Pulse Oximetry 96 96 07/21/20 17:24 Temperature Pulse Rate 94 H Respiratory Rate 18 Blood Pressure 152/84 H Pulse Oximetry 98 MDM - Male Genitourinary <DERECK Orourke - Last Filed: 07/21/20 19:23> Medical Records Attestation: I reviewed the patient's medical records. Lab Data Attestation: I reviewed the patient's lab results. Result diagrams: 07/21/20 14:55 07/21/20 14:55 Labs: Lab Results 07/21/20 07/21/20 07/21/20 Range/Units 14:25 14:55 14:55 WBC 20.3 H (4.5-11.0) X10^3/uL RBC 5.16 (4.5-5.9) X10^6/uL Hgb 14.7 (13.5-17.5) g/dL Hct 43.3 (41-53) % MCV 83.9 (80-100) fL MCH 28.4 (26-34) PG MCHC 33.9 (30-36) % RDW 14.0 (11.6-14.8) % Plt Count 203 (150-400) X10^3/uL Neut % (Auto) 80.8 H (50-75) % Lymph % (Auto) 9.9 L (25-40) % [place] % (Auto) 7.9 (3-14) % Eos % (Auto) 0.3 L (2-4) % Baso % (Auto) 1.1 (0-2) % Neut # (Auto) 22280 H (1093-1353) /uL Lymph # (Auto) 2000 (4794-8131) /uL [place] # (Auto) 1600 H (0-900) /uL Eos # (Auto) 100 (0-450) /uL Baso # (Auto) 200 H (0-100) /uL Sodium 133 L (137-145) mmol/L Potassium 3.7 (3.4-5.1) mmol/L Chloride 99 (98-107) mmol/L Carbon Dioxide 24 (22-32) mmol/L BUN 15 (9-20) mg/dL Creatinine 0.74 (0.66-1.25) mg/dL Estimated GFR > 60.0 (>60) mL/min BUN/Creatinine Ratio 20.3 (6-22) Glucose 196 H (80-110) mg/dL Calcium 9.1 (8.4-10.2) mg/dL Total Bilirubin 1.1 (0.2-1.3) mg/dL AST 39 (17-59) IU/L ALT 63 H (<50) IU/L Alkaline Phosphatase 52 (38-126) U/L Total Protein 7.9 (6.3-8.2) g/dL Albumin 4.3 (3.5-5.0) g/dL Globulin 3.6 (1.7-4.1) g/dL Albumin/Globulin Ratio 1.2 (1.0-2.8) Urine RBC 0-1/hpf (0-5/HPF) Urine WBC 30-100/hpf H (0-5/HPF) Ur Squamous Epith Cells 0-1 /hpf (0-5/HPF) Urine Bacteria Moderate (10-30) H (None) Urine Mucus 1+ H (Negative) Ur Culture Indicated? Specimen cultured Urine Dip Bedside Urine Glucose Negative Bedside Urine Bilirubin - Negative Bedside Urine Ketone - Negative Urine Specific Brock 1.025 Bedside Urine Occult Blood +/- Bedside Urine pH 6.0 Bedside Urine Protein +/- 15 Bedside Urine Urobilinogen - Negative Bedside Urine Nitrite - Negative Bedside Urine Leukocytes + [address] scan - abdomen/pelvis: Radiologist's Impression: [address] [id number] Scan ReportSigned Patient: Gus DawnMR#: [id number]: 8Acct:[id number]/Sex: 60 / MDate of Service: 07/21/20Loc: EDAccession Number: [id number] Procedure: CT abdomen pelvis w con Ordering Provider: Ava Hodgson PROCEDURE: CT ABDOMEN PELVIS W CON INDICATIONS: r/o renal abscess TECHNIQUE: After the administration of intravenous contrast, 5 mm thick sections acquired from the diaphragm to the symphysis. 5 mm coronal and sagittal reformats were acquired. For radiation dose reduction, the following was used: automated exposure control, adjustment of mA and/or kV according to patient size. COMPARISON: [facility], CT, ABD/PELVIS W/CON (PNL), 11/09/2013, 8:14. CT, ASPIR LIVER CYST (L), 11/13/2013, 14:10. FINDINGS: Image quality: Excellent. ABDOMEN: Lung bases: Lung bases are clear. A 2 mm cyst in the right middle lobe, (3/9), unchanged since 2014. Heart size is normal. Solid organs: Liver is normal in size and enhancement. No focal lesion. Gallbladder is surgically absent. Biliary system is non dilated. Pancreas enhances normally. Spleen is normal in size and enhancement. Left adrenal nodule measuring 2.8 x 2.6 cm, (2/33), previously 2 x 2 cm in 2014. This measured less than 10 Houn[address] units on the CT 11/13/2013. No right adrenal nodule. Kidneys demonstrate normal size and enhancement, without hydronephrosis. No striated nephrogram. Small exophytic cyst at the superior pole the right kidney, unchanged. Peritoneum and bowel: Bowel loops demonstrate normal wall thickness and caliber. A few colonic diverticuli. Normal appendix. No free fluid or air. Nodes and vessels: No retroperitoneal or mesenteric adenopathy by size criteria. Aorta and inferior vena cava are normal in size. Mild calcified atherosclerotic plaque. Circumaortic left renal vein, variant. Miscellaneous: No ventral hernias. PELVIS: Genitourinary: Bladder is partially decompressed. The bladder wall measures approximately 1.1 cm, (5/51). There is mild stranding surround the urinary bladder. Prostatomegaly. Miscellaneous: No inguinal hernias or adenopathy. Bones: No suspicious bony lesions. No vertebral body compression fractures. IMPRESSION: 1. Accounting for bladder wall partial decompression, the bladder wall appears thickened with mild surrounding inflammatory change. Findings most compatible with cystitis. 2. No striated nephrogram demonstrated to suggest pyelonephritis. No hydronephrosis. 3. Prostatomegaly. 4. Left benign adrenal adenoma. Dictated by: Gualberto Barr M.D. on 07/21/2020 at 16:21 Approved by: Gualberto Barr M.D. on 07/21/2020 at 16:30 [facility] Narrative Medical decision making narrative: 60-year-old male presents emergency department for right flank pain and dysuria. I suspect pyelonephritis given right flank pain, dysuria, elevated white blood cell count, and bacteria in urine. CT does not show any stranding on kidney to suggest pyelonephritis, but given clinical examination with right flank pain and elevated white blood cell count, patient was treated for pyelonephritis as it is a clinical diagnosis. Less likely renal stone or abscess, or acute abdominal etiology given clear CT and lack of abdominal pain on palpation. Less likely prostatitis given lack of pain with palpation of the prostate, no rectal pressure. Patient was hemodynamically stable, awake and alert, tolerating p.o. fluids and food. No vomiting. Patient is a candidate for outpatient treatment. Culture was sent to lab for further evaluation. Patient was started on cefixime for pyelonephritis. He was encouraged to follow up with PCP in the next few days. Return precautions given for new or worsening symptoms. <Mckinley Olguin MD - Last Filed: 07/22/20 18:39> Lab Data Labs: Lab Results 07/21/20 07/21/20 07/21/20 Range/Units 14:25 14:55 14:55 WBC 20.3 H (4.5-11.0) X10^3/uL RBC 5.16 (4.5-5.9) X10^6/uL Hgb 14.7 (13.5-17.5) g/dL Hct 43.3 (41-53) % MCV 83.9 (80-100) fL MCH 28.4 (26-34) PG MCHC 33.9 (30-36) % RDW 14.0 (11.6-14.8) % Plt Count 203 (150-400) X10^3/uL Neut % (Auto) 80.8 H (50-75) % Lymph % (Auto) 9.9 L (25-40) % [place] % (Auto) 7.9 (3-14) % Eos % (Auto) 0.3 L (2-4) % Baso % (Auto) 1.1 (0-2) % Neut # (Auto) 11292 H (0893-6749) /uL Lymph # (Auto) 2000 (0361-1169) /uL [place] # (Auto) 1600 H (0-900) /uL Eos # (Auto) 100 (0-450) /uL Baso # (Auto) 200 H (0-100) /uL Sodium 133 L (137-145) mmol/L Potassium 3.7 (3.4-5.1) mmol/L Chloride 99 (98-107) mmol/L Carbon Dioxide 24 (22-32) mmol/L BUN 15 (9-20) mg/dL Creatinine 0.74 (0.66-1.25) mg/dL Estimated GFR > 60.0 (>60) mL/min BUN/Creatinine Ratio 20.3 (6-22) Glucose 196 H (80-110) mg/dL Calcium 9.1 (8.4-10.2) mg/dL Total Bilirubin 1.1 (0.2-1.3) mg/dL AST 39 (17-59) IU/L ALT 63 H (<50) IU/L Alkaline Phosphatase 52 (38-126) U/L Total Protein 7.9 (6.3-8.2) g/dL Albumin 4.3 (3.5-5.0) g/dL Globulin 3.6 (1.7-4.1) g/dL Albumin/Globulin Ratio 1.2 (1.0-2.8) Urine RBC 0-1/hpf (0-5/HPF) Urine WBC 30-100/hpf H (0-5/HPF) Ur Squamous Epith Cells 0-1 /hpf (0-5/HPF) Urine Bacteria Moderate (10-30) H (None) Urine Mucus 1+ H (Negative) Ur Culture Indicated? Specimen cultured Urine Dip Bedside Urine Glucose Negative Bedside Urine Bilirubin - Negative Bedside Urine Ketone - Negative Urine Specific Brock 1.025 Bedside Urine Occult Blood +/- Bedside Urine pH 6.0 Bedside Urine Protein +/- 15 Bedside Urine Urobilinogen - Negative Bedside Urine Nitrite - Negative Bedside Urine Leukocytes + 70 Esterase Discharge Plan Departure Patient Disposition: Home Clinical Impression: Acute pyelonephritis Instructions: DI for Kidney Infection Activity Restrictions/Additional Instructions: Thank you for entrusting me with your care today. As discussed, CT is negative for any concerning findings, it does show some bladder inflammation which is most consistent with infection. Your white blood cell count was elevated, this is also consistent with an infection. I prescribed you some antibiotics, please take these accordingly. Start taking these immediately tonight. Your prescription was sent to [facility] in [place]. Your urine was sent for a culture in the lab, if a change in antibiotics is needed we will give you call in approximately 2 days. Follow-up with your primary care provider in 1-2 weeks for further evaluation and to ensure you are getting better not worse. Return emergency department for any new or worsening symptoms such as high fevers, uncontrollable vomiting, worsening pain, or any other concerns. Prescriptions: New cefixime 400 mg capsule 400 mg PO DAILY 14 Days Qty: 14 RF: 0 No Action simvastatin 20 mg tablet 20 mg PO QPM RF: 0 metformin 500 mg tablet 500 mg PO BID RF: 0 pantoprazole [Protonix] 20 mg tablet,delayed release (DR/EC) 20 mg PO DAILY RF: 0 metoprolol tartrate 50 mg tablet 50 mg PO BID RF: 0 meclizine 25 mg tablet,chewable 25 mg PO DAILY RF: 0 triamterene-hydrochlorothiazid 37.5-25 mg tablet 1 tab PO DAILY RF: 0 (DME) Respironics Remstar CPAP Qty: 1 RF: 0 Referrals: Ada Solitario MD [Primary Care Provider] -
[2020-07-21 14:45] LABS: RBC Urine 0-1/HPF (0-5/HPF)
[2020-07-21 14:46] LABS: Bacteria Urine Moderate (10-30); Culture Indicated Urine Specimen Cultured; Mucus Urine 1+ (Negative); Squamous Epithelial Cell Urine 0-1 /HPF (0-5/HPF); WBC Urine 30-100/HPF (0-5/HPF)
[2020-07-21 15:04] LABS: Add Manual Diff / Slide Review NO; Basophils Absolute Auto 200 /uL (0-100); Basophils Percent Auto 1.1 % (0-2); Eosinophils Absolute Auto 100 /uL (0-450); Eosinophils Percent Auto 0.3 % (2-4); Hematocrit 43.3 % (41-53); Hemoglobin 14.7 g/dL (13.5-17.5); Lymphocytes Absolute Auto 2000 /uL (1100-4500); Lymphocytes Percent Auto 9.9 % (25-40); Mean Corpuscular HGB Conc 33.9 % (30-36); Mean Corpuscular Hemoglobin 28.4 PG (26-34); Mean Corpuscular Volume 83.9 fL (80-100); Monocytes Absolute Auto 1600 /uL (0-900); Monocytes Percent Auto 7.9 % (3-14); Neutrophils Absolute Auto 16400 /uL (1500-7000); Neutrophils Percent Auto 80.8 % (50-75); Platelet Count 203 X10^3/uL (150-400); Red Blood Cell Count 5.16 X10^6/uL (4.5-5.9); White Blood Cell Count 20.3 X10^3/uL (4.5-11.0)
[2020-07-21 15:15] LABS: Alanine Aminotransferase 63 IU/L (<50); Albumin 4.3 g/dL (3.5-5.0); Albumin Globulin Ratio 1.2 (1.0-2.8); Alkaline Phosphatase 52 U/L (38-126); Aspartate Aminotransferase 39 IU/L (17-59); BUN Creatinine Ratio 20.3 (6-22); Bilirubin Total 1.1 mg/dL (0.2-1.3); Blood Urea Nitrogen 15 mg/dL (9-20); Calcium 9.1 mg/dL (8.4-10.2); Carbon Dioxide 24 mmol/L (22-32); Chloride 99 mmol/L (98-107); Estimated Glomerular Filt Rate > 60.0 mL/min (>60); Globulin 3.6 g/dL (1.7-4.1); Glucose 196 mg/dL (80-110); HEMOLYSIS < 15 (0-50); Potassium 3.7 mmol/L (3.4-5.1); Sodium 133 mmol/L (137-145); Total Protein 7.9 g/dL (6.3-8.2)
--- NOTE | 2020-07-21 15:33 | DI.CT.S_ITS ---
PROCEDURE: CT ABDOMEN PELVIS W CON INDICATIONS: r/o renal abscess TECHNIQUE: After the administration of intravenous contrast, 5 mm thick sections acquired from the diaphragm to the symphysis. 5 mm coronal and sagittal reformats were acquired. For radiation dose reduction, the following was used: automated exposure control, adjustment of mA and/or kV according to patient size. COMPARISON: [facility], CT, ABD/PELVIS W/CON (PNL), 11/09/2013, 8:14. CT, ASPIR LIVER CYST (PNL), 11/13/2013, 14:10. FINDINGS: Image quality: Excellent. ABDOMEN: Lung bases: Lung bases are clear. A 2 mm cyst in the right middle lobe, (10/26), unchanged since 2014. Heart size is normal. Solid organs: Liver is normal in size and enhancement. No focal lesion. Gallbladder is surgically absent. Biliary system is non dilated. Pancreas enhances normally. Spleen is normal in size and enhancement. Left adrenal nodule measuring 2.8 x 2.6 cm, (), previously 2 x 2 cm in 2014. This measured less than 10 H[address] units on the CT 11/13/2013. No right adrenal nodule. Kidneys demonstrate normal size and enhancement, without hydronephrosis. No striated nephrogram. Small exophytic cyst at the superior pole the right kidney, unchanged. Peritoneum and bowel: Bowel loops demonstrate normal wall thickness and caliber. A few colonic diverticuli. Normal appendix. No free fluid or air. Nodes and vessels: No retroperitoneal or mesenteric adenopathy by size criteria. Aorta and inferior vena cava are normal in size. Mild calcified atherosclerotic plaque. Circumaortic left renal vein, variant. Miscellaneous: No ventral hernias. PELVIS: Genitourinary: Bladder is partially decompressed. The bladder wall measures approximately 1.1 cm, (5/51). There is mild stranding surround the urinary bladder. Prostatomegaly. Miscellaneous: No inguinal hernias or adenopathy. Bones: No suspicious bony lesions. No vertebral body compression fractures. IMPRESSION: 1. Accounting for bladder wall partial decompression, the bladder wall appears thickened with mild surrounding inflammatory change. Findings most compatible with cystitis. 2. No striated nephrogram demonstrated to suggest pyelonephritis. No hydronephrosis. 3. Prostatomegaly. 4. Left benign adrenal adenoma. Dictated by: Gualberto Barr M.D. on 07/21/2020 at 16:21 Approved by: Gualberto Barr M.D. on 07/21/2020 at 16:30
[2020-07-21] MEDS: SODIUM CHLORIDE 0.9% 1,000 ML 1000 ML IV (17:03)
[2020-07-21 17:24] VITALS: BP 152/84; PULSE 94; RESP 18; O2SAT 98
== END 2020-07-21 17:26 | disposition home or self-care (01) ==
PROVIDERS: Emergency Provider Nurse Practitioner; PCP Family Medicine
DX: N10 Acute pyelonephritis (principal); R32 Unspecified urinary incontinence; E87.1 Hypo-osmolality and hyponatremia; E11.9 Type 2 diabetes mellitus without complications; E78.5 Hyperlipidemia, unspecified; E66.09 Other obesity due to excess calories; Z68.33 Body mass index [BMI] 33.0-33.9, adult; D72.829 Elevated white blood cell count, unspecified
CPT/HCPCS: 36415; 51798; 74177; 80053; 81003; 81015; 85025; 87077; 87086; 87186; 99282; 99284; Q9967

== ENCOUNTER → 2023-05-14 10:03 | Outpatient (CLI) | payer MEDICARE, OTHER, SELFPAY ==
[2020-02-03 09:02] VITALS: BMI 35.2
--- NOTE | 2023-05-14 10:08 | DI.RAD.S_ITS ---
PROCEDURE: XR HIP W PEL IF DONE LT 2V INDICATIONS: PAIN IN LEFT HIP TECHNIQUE: 2 views of the hip were acquired. COMPARISON: None. FINDINGS: Bones: Moderate left and [id number] right hip degenerative changes. No displaced fracture or dislocation. Lumbosacral degenerative changes also present. Soft tissues: No suspicious calcifications. Prominent left femoral head neck junction can sometimes be seen with impingement. IMPRESSION: Moderate left and [id number] right hip arthrosis. If there is high concern for further derangement, consider MRI evaluation. Dictated by: Richard Weiss M.D. on 05/14/2023 at 11:42 Approved by: Richard Weiss M.D. on 05/14/2023 at 11:43
--- NOTE | 2023-05-14 10:08 | DI.US.S_ITS ---
PROCEDURE: US ABDOMEN LIMITED INDICATIONS: ABNORMAL LIVER FUNCTION TESTS TECHNIQUE: Real-time scanning was performed of the abdominal and retroperitoneal organs, with image documentation. COMPARISON: [facility], CT, CT ABDOMEN PELVIS W CON, 07/21/2020, 15:55. FINDINGS: Liver: The liver is enlarged measuring 19.5 cm. Increased echogenicity of the liver. Gallbladder: Surgically absent. Biliary ducts: Intrahepatic bile ducts are non-dilated. Extrahepatic bile duct caliber measures 7.8 mm. Normal is 6-7 mm or less in diameter, or 10 mm or less post-cholecystectomy. Pancreas: Heterogeneous appearance of the pancreas versus artifact from adjacent bowel. IMPRESSION: 1. Hepatomegaly. Increased hepatic echogenicity noted possibly related to hepatic steatosis but other sources of hepatocellular disease or hepatic cirrhosis cannot be excluded. Recommend clinical correlation. 2. Status post cholecystectomy. 3. Heterogeneous appearance of the pancreas which may be artifactual from adjacent bowel. This finding can be seen with chronic pancreatitis. Dictated by: Javier Lindsey M.D. on 05/14/2023 at 12:55 Approved by: Javier Lindsey M.D. on 05/14/2023 at 12:58
== END ==
PROVIDERS: PCP Internal Medicine; Referring Provider Internal Medicine; Visit Provider Internal Medicine
DX: M16.0 Bilateral primary osteoarthritis of hip (principal); R94.5 Abnormal results of liver function studies; M25.552 Pain in left hip; R16.0 Hepatomegaly, not elsewhere classified; Z90.49 Acquired absence of other specified parts of digestive tract
CPT/HCPCS: 73502; 76705

== ENCOUNTER → 2023-05-27 09:41 | Outpatient (CLI) | payer MEDICARE, OTHER, SELFPAY ==
[2020-02-03 09:02] VITALS: BMI 35.2
--- NOTE | 2023-05-27 | DI.MRI.S_ITS ---
PROCEDURE: MR HIP LT WO CON INDICATIONS: Pain in left hip TECHNIQUE: Noncontrast coronal T1 spin echo and STIR through the bony pelvis. Coronal and axial T2 fast spin echo with fat saturation, sagittal T1 spin echo, and oblique axial T2 fast spin echo with fat saturation through the hip. COMPARISON: [facility], CR, XR HIP W PEL IF DONE LT 2V, 05/14/2023, 10:34. FINDINGS: Image quality: Excellent. Bones and joints: Bone marrow of the pelvic ring and proximal femurs show normal signal throughout. No intraosseous lesions or fractures. No avascular necrosis of the femoral heads. Mild disc desiccation and facet hypertrophy in the included lumbar spine. Tendons and ligaments: There is partial intrasubstance tearing of the left gluteus minimus tendon at its insertion onto the greater trochanter, superimposed on chronic gluteus medius and minimus tendinosis. Small amount of surrounding trochanteric and sub gluteal bursal fluid is present. The proximal iliotibial band appears intact. The iliopsoas tendon appears intact, without adjacent bursal fluid collections. The origin of the hamstring tendon is intact at the ischial tuberosity. The direct and indirect heads of the rectus femoris muscle origin appear intact. Labrum and cartilage: There is diffuse labral degeneration and chronic degenerative tearing. Moderate to high-grade partial-thickness cartilage loss is seen at the superior aspect of the hip with marginal osteophyte formation. Small osseous protuberance is noted at the anterosuperior femoral head/neck junction. Soft tissues: Visualized muscles demonstrate normal bulk and internal signal. Quadratus femoris muscle demonstrates no internal edema to suggest ischiofemoral impingement. The proximal sciatic neurovascular bundle appears intact. A few diverticula are seen in the included colon without acute inflammatory changes. Prostate is mildly enlarged. IMPRESSION: 1. Partial intrasubstance tearing of the left gluteus minimus tendon at its distal insertion superimposed on chronic gluteus medius and minimus tendinosis. Small trochanteric and sub gluteal bursal effusions. 2. 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 Diffuse labral degeneration and chronic degenerative tearing. 3. Mild degenerative changes in the included lumbar spine. Approved by: Rojelio Carvajal M.D. on 05/28/2023 at 11:42
== END ==
PROVIDERS: PCP Internal Medicine; Referring Provider Internal Medicine; Visit Provider Internal Medicine
DX: M25.552 Pain in left hip (principal); S76.012A Strain of muscle, fascia and tendon of left hip, initial encounter; M25.452 Effusion, left hip; M94.252 Chondromalacia, left hip; M25.752 Osteophyte, left hip
CPT/HCPCS: 73721

== ENCOUNTER 2025-06-23 21:12 | Emergency (ER) | payer MEDICARE, OTHER, SELFPAY ==
[2020-02-03 09:02] VITALS: BMI 35.2
[2025-06-23 21:20] VITALS: BP 146/101; PULSE 126; RESP 18; TEMP 36.6; O2SAT 98; BMI 31.8
--- NOTE | 2025-06-23 21:25 | DI.CT.S_ITS ---
PROCEDURE: CT ABDOMEN PELVIS W CON
[2025-06-23 21:34] LABS: Add Manual Diff / Slide Review NO; Hematocrit 45.4 % (41-53); Hemoglobin 15.6 g/dL (13.5-17.5); Lymphocytes Absolute Auto 2300 /uL (1100-4500); Mean Corpuscular HGB Conc 34.3 % (30-36); Mean Corpuscular Hemoglobin 28.5 PG (26-34); Mean Corpuscular Volume 83.1 fL (80-100); Platelet Count 258 X10^3/uL (150-400)
[2025-06-23 21:47] LABS: Alanine Aminotransferase 48 IU/L (<50); Albumin 4.7 g/dL (3.5-5.0); Albumin Globulin Ratio 1.3 (1.0-2.8); Alkaline Phosphatase 53 U/L (38-126); Blood Urea Nitrogen 22 mg/dL (9-20); Calcium 9.4 mg/dL (8.4-10.2); Carbon Dioxide 28 mmol/L (22-32); Chloride 96 mmol/L (98-107); Estimated Glomerular Filt Rate > 60 mL/min (>60); Globulin 3.7 g/dL (1.7-4.1); Glucose 198 mg/dL (70-99); HEMOLYSIS < 15 (0-50); Lactate (Lactic Acid) 2.1 mmol/L (0.7-2.1); Lipase 200 U/L (23-300); Potassium 3.8 mmol/L (3.4-5.1); Sodium 134 mmol/L (137-145); Total Protein 8.4 g/dL (6.3-8.2)
[2025-06-23 22:03] LABS: Procalcitonin 0.109 ng/mL (<0.5)
[2025-06-23] MEDS: cefTRIAXone 2,000 MG in SODIUM CHLORIDE 0.9% 100 ML 200 MG IV (22:09)
[2025-06-23] MEDS: KETOROLAC 30 MG/ML VIAL 15 MG IV (22:09)
[2025-06-23] MEDS: SODIUM CHLORIDE 0.9% 1,000 ML 1000 ML IV (22:09)
[2025-06-23 22:15] VITALS: PULSE 111; O2SAT 97
[2025-06-23 22:16] VITALS: BP 158/99; PULSE 111; O2SAT 96
--- NOTE | 2025-06-23 22:19 | PC.NURSE ---
Line placed prior to this nurse assuming care
[2025-06-23 22:24] LABS: Appearance Urine UA SL CLOUDY; Bilirubin Urine UA NEGATIVE (NEGATIVE); Color Urine UA YELLOW; Glucose Urine UA NEGATIVE (Negative); Ketones Urine UA NEGATIVE (NEGATIVE); Leukocyte Esterase Urine UA 1+ (NEGATIVE); Nitrite Urine UA NEGATIVE (Negative); Occult Blood Urine UA 3+ (Negative); Protein Urine UA 2+ (Negative); Specific Gravity Urine UA 1.010 (1.000-1.035); Urobilinogen Urine UA 0.2 E.U./dL (0.2); pH Urine UA 6.5 (4.5-8.0)
[2025-06-23 22:30] VITALS: BP 150/91; PULSE 108; O2SAT 97
[2025-06-23 22:31] LABS: Culture Indicated Urine Specimen Cultured
[2025-06-23 23:00] VITALS: BP 141/95; PULSE 106; O2SAT 97
[2025-06-23 23:07] LABS: Reflexed Lactate in 2 Hours Y
[2025-06-23 23:30] VITALS: BP 153/93; PULSE 107; O2SAT 98
--- NOTE | 2025-06-23 23:30 | ED_ITS ---
HPI - General Adult
--- NOTE | 2025-06-23 23:30 | ED.GENADULT ---
HPI - General Adult General Chief complaint: Urogenital-Male Stated complaint: urogential male Time Seen by Provider: 06/23/25 21:13 Source: patient Mode of arrival: Ambulatory History of Present Illness HPI narrative: 65-year-old gentleman with a history of diabetes, hypertension, hyperlipidemia prior episode of pyelonephritis with a pansensitive E coli who presents today complaining of right-sided flank pain general malaise and describes symptoms is very similar to when he had the prior pyelonephritis. He does not describe any diagnosis of kidney stones. He reports lower volumes of urine than he would expect over the evening. No fevers, chest pain, vomiting, diarrhea. Related Data Home Medications ?Medication ?Instructions ?Recorded ?Confirmed metformin 500 mg tablet 500 mg PO BID 12/09/18 07/04/22 metoprolol tartrate 50 mg tablet 50 mg PO BID 12/09/18 07/04/22 pantoprazole 20 mg tablet,delayed 20 mg PO DAILY 12/09/18 07/04/22 release (Protonix) Respironics Remstar CPAP #1 ea 06/19/19 07/04/22 simvastatin 20 mg tablet 20 mg PO QPM 06/19/19 07/04/22 triamterene 37.5 0.5 tab PO DAILY 07/04/22 07/04/22 mg-hydrochlorothiazide 25 mg tablet Previous Rx's ?Medication ?Instructions ?Recorded amoxicillin 875 mg-potassium 1 tab PO BID #20 tabs 06/23/25 clavulanate 125 mg tablet Allergies Allergy/AdvReac Type Severity Reaction Status Date / Time No Known Allergies Allergy Unknown Verified 06/23/25 21:20 Review of Systems Review of Systems Narrative: Pertinent positive and negative findings as per HPI Patient History Medical History microfiche duplicator associated with adverse incidents (~01/31/21) Liver abscess Type 2 diabetes mellitus Clicking tinnitus of right ear Vertigo Hypertension Hyperlipidemia Chronic seasonal allergic rhinitis Obesity (BMI 30-39.9) Obstructive sleep apnea of adult Surgical History History of surgery on arm History of cholecystectomy Family History Father Medical history unknown Mother Hypertension Cardiac disease Smoker Social History marital status: details: cassie Sanchez, lives in [place] household members: spouse lives independently: Yes caregiver/support person: No housing: house pets and animals: Yes (2 dogs) occupational status: other (retired) Smoking Status: Never smoker Smoking Status: Never smoker alcohol intake frequency: holidays/special occasions only Exam Initial Vital Signs Initial Vital Signs: Vital Signs Temperature 97.9 F 06/23/25 21:20 Pulse Rate 126 H 06/23/25 21:20 Respiratory Rate 18 06/23/25 21:20 Blood Pressure 146/101 H 06/23/25 21:20 Pulse Oximetry 98 06/23/25 21:20 Oxygen Delivery Method Room Air 06/23/25 21:20 General: Healthy appearing, having a difficult time finding a comfortable position but able to cooperate fully with the exam HEENT: Moist mucous membranes, normal sclera with reactive pupils, Respiratory: Lungs are clear to auscultation, no wheezing no rales no rhonchi. Full and symmetrical air movement Cardiac: Regular rate and rhythm no murmurs no bruits Abdomen: Soft, no abdominal tenderness, right flank pain Skin: Warm and dry, no rashes Neurologic: Grossly neurologically intact with no obvious asymmetries or abnormalities Extremities: No trauma, Psych: Cooperative, appropriate insight and affect Course Orders Ordered: ED Orders 06/23/25 21:25 CT abdomen pelvis w con Stat 06/23/25 21:28 Complete Blood Count AUTO DIFF Stat Comprehensive Metabolic Panel Stat Lactate (Lactic Acid) Stat Lipase Stat Procalcitonin Stat 06/23/25 21:51 Blood Culture Stat 06/23/25 22:04 Urinalysis and Microscopic Stat Urine Culture Stat Discontinued Medications Sodium Chloride (Normal Saline 0.9%) 1,000 mls @ 1,000 mls/hr IV BOLUS ONE Stop: 06/23/25 22:23 Last Infusion: 06/23/25 22:48 Dose: Infused Documented By: Admin: 06/23/25 22:09 Dose: 1,000 mls/hr Documented By: Ceftriaxone Sodium 2,000 mg/ (Sodium Chloride) 100 mls @ 200 mls/hr IV NOW ONE Stop: 06/23/25 21:25 Last Infusion: 06/23/25 22:48 Dose: Infused Documented By: Admin: 06/23/25 22:09 Dose: 200 mls/hr Documented By: Ketorolac Tromethamine (Ketorolac 30 Mg/Ml Vial) 15 mg IV NOW ONE Stop: 06/23/25 21:25 Last Admin: 06/23/25 22:09 Dose: 15 mg Documented By: Vital Signs Vital signs: Vital Signs - 8 hr 06/23/25 21:20 06/23/25 22:15 06/23/25 22:16 Temperature 97.9 F Pulse Rate 126 H 111 H Respiratory Rate 18 Blood Pressure 146/101 H 158/99 H Pulse Oximetry 98 97 Oxygen Delivery Method Room Air 06/23/25 22:16 Temperature Pulse Rate 111 H Respiratory Rate Blood Pressure Pulse Oximetry 96 Oxygen Delivery Method Room Air Medical Decision Making Lab Data 06/23/25 21:28 06/23/25 21:28 Labs: Lab Results 06/23/25 06/23/25 Range/Units 21:28 22:04 WBC 19.1 H (4.5-11.0) X10^3/uL RBC 5.46 (4.5-5.9) X10^6/uL Hgb 15.6 (13.5-17.5) g/dL Hct 45.4 (41-53) % MCV 83.1 (80-100) fL MCH 28.5 (26-34) PG MCHC 34.3 (30-36) % RDW 14.8 (11.6-14.8) % Plt Count 258 (150-400) X10^3/uL Neut % (Auto) 77.8 H (50-75) % Lymph % (Auto) 12.3 L (25-40) % [place] % (Auto) 7.6 (3-14) % Eos % (Auto) 0.9 L (2-4) % Baso % (Auto) 1.4 (0-2) % Neut # (Auto) 85186 H (1715-9644) /uL Lymph # (Auto) 2300 (9714-4413) /uL [place] # (Auto) 1400 H (0-900) /uL Eos # (Auto) 200 (0-450) /uL Baso # (Auto) 300 H (0-100) /uL Sodium 134 L (137-145) mmol/L Potassium 3.8 (3.4-5.1) mmol/L Chloride 96 L (98-107) mmol/L Carbon Dioxide 28 (22-32) mmol/L BUN 22 H (9-20) mg/dL Creatinine 0.81 (0.66-1.25) mg/dL Estimated GFR > 60 (>60) mL/min BUN/Creatinine Ratio 27.2 H (6-22) Glucose 198 H (70-99) mg/dL Lactate 2.1 (0.7-2.1) mmol/L Calcium 9.4 (8.4-10.2) mg/dL Total Bilirubin 0.5 (0.2-1.3) mg/dL AST 39 (17-59) IU/L ALT 48 (<50) IU/L Alkaline Phosphatase 53 (38-126) U/L Total Protein 8.4 H (6.3-8.2) g/dL Albumin 4.7 (3.5-5.0) g/dL Globulin 3.7 (1.7-4.1) g/dL Albumin/Globulin Ratio 1.3 (1.0-2.8) Lipase 200 (23-300) U/L Procalcitonin 0.109 (<0.5) ng/mL Urine Color Yellow Urine Appearance Sl cloudy Urine pH 6.5 (4.5-8.0) Ur Specific [place] 1.010 (1.000-1.035) Urine Protein 2+ H (Negative) Urine Glucose (UA) Negative (Negative) g/dL Urine Ketones Negative (NEGATIVE) Urine Occult Blood 3+ H (Negative) Urine Nitrate Negative (Negative) Urine Bilirubin Negative (NEGATIVE) Urine Urobilinogen 0.2 (0.2) E.U./dL Ur Leukocyte Esterase 1+ H (NEGATIVE) Urine RBC 5-10/hpf H (0-5/HPF) Urine WBC 10-30/hpf H (0-5/HPF) Ur Squamous Epith Cells 0-1 /hpf (0-5/HPF) Urine Bacteria Few (2-10) H (None) Ur Culture Indicated? Specimen cultured Vol Urine Centrifuged 10ml (spun) Imaging Data CT scan - abdomen/pelvis: Radiologist's Impression: PROCEDURE: CT ABDOMEN PELVIS W CON INDICATIONS: flank pain right TECHNIQUE: After the administration of intravenous contrast, axial sections acquired from the lung bases to the pubic symphysis. Coronal and sagittal reformats were performed. For radiation dose reduction, the following was used: automated exposure control, adjustment of mA and/or kV according to patient size. COMPARISON: [facility], CT, CT ABDOMEN PELVIS W CON, 07/21/2020, 15:55. FINDINGS: Image quality: Diagnostic Lower chest: Unremarkable lung bases. Normal heart size. Mitral annular calcifications. Liver: Hepatomegaly at 22 cm. Gallbladder and biliary system: Cholecystectomy clips, nondilated. Pancreas: No ductal dilation Spleen: Nonenlarged Adrenals: Left adrenal nodule again seen, measuring 2.8 cm similar to prior. Kidneys: No solid renal mass. No hydronephrosis. Vessels and lymph nodes: Main portal vein is patent. No abdominal aneurysm. Circumaortic left renal vein. Mild aortoiliac atherosclerotic calcifications. Bowel and peritoneum: Gastric wall thickening is suspected. This is not well assessed however due to under distension. No bowel obstruction. No drainable abscess or ascites. There are colonic diverticula. Nondilated appendix Body wall: Small fat containing inguinal hernias. Pelvis: Under distended urinary bladder. Urinary bladder appears thick walled. Heterogeneous prostate enhancement also seen, nonspecific and not well assessed on CT. Bones: No aggressive appearing osseous abnormality. IMPRESSION: No hydronephrosis or obstructing calcified stone. Thick wall urinary bladder, correlate urinalysis for infection. Thick-walled stomach, which may represent gastritis versus artifact of under distention. Hepatomegaly. Other findings above. Dictated by: Richard Weiss M.D. on 06/23/2025 at 22:00 MDM Narrative Medical decision making narrative: CC: Acute onset right flank pain Complicating co-morbidities: Prior pyelonephritis with similar presentation, diabetes, hypertension, hyperlipidemia Data collected from: patient Medical records reviewed: Discharge summary from 2019 with pyelonephritis admission Differential considered: Acute kidney stone, pyelonephritis, appendicitis, gastroenteritis Exam documented above, pertinent findings include: Flank pain mild right abdominal pain no rebound or guarding Lab Test results independently reviewed as above. Pertinent findings: CBC shows a white count of 19.1. Minimal left shift at 77.8. No anemia Chemistries show normal renal function, normal liver studies Lactic acid was 2.1 initially Lipase is normal Procalcitonin is not elevated Urine has protein blood 1+ leukocyte esterase, red cells, white cells occasional bacteria it has been cultured Imaging studies independently reviewed: CT scan of the abdomen and pelvis does not show hydronephrosis or stones. Thickened urinary wall suggests urinary tract infection. There is not renal inflammation Treatments: Fluids, ceftriaxone was initiated after urine culture and blood culture was obtained. This is based on pansensitive E coli urinary tract/pyelonephritis infection from 2019. Discussion: 65-year-old gentleman with flank pain, leukocytosis urine that certainly looks infected a CT scan suggests at least a bladder infection without overt renal inflammation and no evidence of hydronephrosis or stones. Similar presentation in 2019, pansensitive E coli at that time he was started on ceftriaxone. Discussed findings with him today. At this point he is feeling significantly improved he is able to eat and drink he has family that can be with him full-time if needed. We discussed observation overnight versus discharge home and he would much prefer discharge home which I believe is safe. I am going to choose Augmentin for 10 days again based on previous cultures. If blood cultures returned positive you will obviously be re-contacted and he is aware of that. Blood pressure is stable pain has resolved he otherwise looks significantly improved at this point in his stable for discharge. I did suggest outpatient follow up with his primary care physician. I do think at least questioning why a 65-year-old gentleman is getting pyelonephritis is appropriate. Does not describe significant BPH symptoms and he does not have significant acute urinary retention. Discharge Plan Departure Patient Disposition: Home Clinical Impression: Acute pyelonephritis Instructions: DI for Kidney Infection Activity Restrictions/Additional Instructions: Thank you for coming in today I am glad that you came in early, it does look like you are developing another kidney infection. Based on the kidney infection in 2019 I started you on IV antibiotics and I will be sending you home on oral antibiotics. Your lab work showed an elevated white blood cell count but normal kidney function, no signs of dehydration. Your pain was improved significantly with Toradol and fluids. You have family to help and reliable transportation to return if symptoms do worsen. I have sent a prescription for Augmentin, antibiotic to be taken twice a day for [address] [facility] in [place], please start this tomorrow. Using 400 mg of ibuprofen (2 [id number] pills) and 1 Tylenol every 6 hours can be very helpful in controlling pain. If you feel that you are getting worse, if you are developing new symptoms or you are unable to keep your antibiotics down, you do need to return to the emergency department. I would also recommend a follow up visit with your primary care physician. It is unusual for 65-year-old man with no other reason to develop pyelonephritis. I believe this is with a discussion with your primary care doctor to see if he has other thoughts or recommendations on further workup when you are not experiencing infection symptoms. Prescriptions: New amoxicillin-pot clavulanate 875-125 mg tablet 1 tab PO BID Qty: 20 0RF No Action simvastatin 20 mg tablet 20 mg PO QPM metformin 500 mg tablet 500 mg PO BID pantoprazole [Protonix] 20 mg tablet,delayed release (DR/EC) 20 mg PO DAILY Rx Instructions: AM metoprolol tartrate 50 mg tablet 50 mg PO BID (DME) Respironics Remstar CPAP Qty: 1 Dose Instruction: As directed Rx Instructions: Pressure: 5-10 cmH2O DME: [facility] triamterene-hydrochlorothiazid 37.5-25 mg tablet 0.5 tab PO DAILY Referrals: Wood Hampton MD [Primary Care Provider, Internal Medicine] Stand Alone Forms: Patient Portal/API
[2025-06-23 23:38] LABS: Lactate 2HR (Lactic Acid Rflx) 2.6 mmol/L (0.7-2.1)
== END 2025-06-23 23:56 | disposition home or self-care (01) ==
PROVIDERS: Emergency Provider Emergency Medicine; PCP Internal Medicine
DX: N10 Acute pyelonephritis (principal)
CPT/HCPCS: 36415; 74177; 80053; 81001; 83605; 83690; 84145; 85025; 87040; 87077; 87086; 87186; 96365; 96375; 99283; 99284; J0696; J1885; J7030; J7050; Q9967